=== PATIENT | female | born 1935 | race Caucasian/White ===

== ENCOUNTER → 2016-09-27 | Outpatient (CLI) | payer OTHER, MEDICARE ==
--- NOTE | 2016-09-27 14:03 | MA ---
Screening Digital Mammogram With iCAD Analysis Clinical Indications: Routine screening. The patient has had previous left breast biopsy. Technique: Standard cephalocaudal and mediolateral oblique projections are obtained. This examination is processed by the iCAD computer aided detection system. Comparison: September 2015, August 2014, July 2013, July 2012, June 2011, May 2010, October 2008. Breast density: Type B; Scattered fibroglandular densities. Findings: CAD was reviewed. No new spiculated masses, suspicious calcifications or other signs of mal ignancy are seen. There has been no significant change in the appearance of either breast. Vascular c alcifications are noted. Impression: Negative mammogram. BI-RADS 1. Recommendation: Routine mammographic screening in one year as long as physical examination is negativ [facility] will send a result letter to the patient. Negative mammography should not preclude additional workup of a clinically suspicious finding. The patient's information is entered into a reminder system with a target due date for her next mammo gram.
== END ==
LOC: FIMAGING 09:42
DX: Z12.31 Encounter for screening mammogram for malignant neoplasm of breast (principal)
CPT/HCPCS: G0202

== ENCOUNTER → 2016-11-15 | Outpatient (CLI) | payer OTHER, MEDICARE | LOC: FIMAGING 14:36 | PROVIDERS: ATTEND Family Medicine | DX: Z13.820 Encounter for screening for osteoporosis (principal); M81.0 Age-related osteoporosis without current pathological fracture ==

== ENCOUNTER → 2017-09-28 | Outpatient (CLI) | payer OTHER, MEDICARE | LOC: FIMAGING 12:04 | PROVIDERS: ATTEND Family Medicine | DX: Z12.31 Encounter for screening mammogram for malignant neoplasm of breast (principal) ==

== ENCOUNTER 2017-12-07 09:40 | Observation (INO) | payer OTHER, MEDICARE ==
[2017-12-07] MEDS ORDERED: NS 1,000 ML IV ONE ×2 (10:00→12:10)
[2017-12-07] MEDS ORDERED: ONDANSETRON 4 MG/2 ML VIAL IVP ONE (10:00)
--- NOTE | 2017-12-07 10:03 | EDPHY ---
H & P Stated Complaint: Pulse rate low and dizziness since thyroid surgery last week Source: Patient, Family Exam Limitations: No limitations - Personal History Current Tetanus Diphtheria and Acellular Pertussis (TDAP): Yes - Medical/Surgical History Other PMH: thyroid surgery November 2017. HTN. prediabetic. cholesterol - Social History Smoking Status: Former smoker Time Seen by Provider: 12/07/17 09:50 HPI/ROS: HPI: This is a 82-year-old female who presents with Chief Complaint: Pulse rate low and dizziness since thyroid surgery last week Location: Body Quality: Low pulse rate dizziness Duration: Since thyroid surgery last week Signs and Symptoms: no fever, + nausea, no vomiting, no hematemesis, no blood in stool, no abdominal bloating, no diarrhea, no back pain, no urinary symptoms , no testicular/groin pain, no indigestion, no chest pain, no shortness of breath, no dysphagia Timing: Daily Severity: Worsening Context: Patient is status post thyroid surgery which I presume is to be thyroidectomy in [place] by Dr. Abarca on November 28, 2017. Patient reports that since that time she has felt dizzy at rest and changing positions has noticed that her heart rate has been in the 40s while at home. She takes lisinopril daily. She reports that she does have some swelling in her throat area but that has gradually improved. She does have some bruising is in the area as well. She denies any difficulty swallowing/hoarseness/weakness/ radiation/muscle spasm/ptosis. Patient denies any calf swelling/shortness of breath/chest pain. Patient reports that she was diagnosed with a heart murmur as a child. Denies any syncopal episodes. Modifying Factors: None Comment: ROS: see HPI Constitutional: No fever, no chills, no weight loss Eyes: No blurred vision Respiratory: No shortness of breath, no cough Cardiovascular: No chest pain, no palpitations Gastrointestinal: + nausea, no vomiting, no diarrhea, no hematemesis, no blood in stool Genitourinary: No dysuria, no blood in urine Extremities: No myalgias, no edema Neurologic: No weakness, no numbness Skin: No rashes, no petechiae Hematologic: No bruising, no bleeding MEDICAL/SURGICAL/SOCIAL HISTORY: Medical history: HTN, prediabetic, cholesterol Surgical history: Thyroidectomy Social history: . Retired. CONSTITUTIONAL: Pleasant elderly white female, awake and alert, no obvious distress HEENT: Atraumatic and normocephalic, PERRL, EOMI. Tympanic membranes clear. Oropharynx clear, no exudate and moist pink mucosa. Airway patent. Neck: Supple; Steri-Strips noted over incision which is clean dry and intact; no wound dehiscence noted. Purple and yellowish ecchymosis present. No lymphadenopathy. No meningismus. Cardiovascular: Normal S1/S2, heart rate 44 to 48 beats per minute, regular rhythm, murmur noted 2/6. No rub or gallop. PULMONARY/CHEST: Symmetrical and nontender. Clear to auscultation bilaterally. Good air movement. No accessory muscle usage. ABDOMEN: Soft, nondistended, nontender, no rebound, no guarding, no peritoneal signs, no masses or organomegaly. No CVAT. EXTREMITIES: 2/2 pulses, strength 5/5, no deformities, no clubbing, no cyanosis or edema. NEUROLOGICAL: no focal neuro deficits. GCS 15. SKIN: Warm and dry, no erythema. no rash. Good capillary refill. (Leander,Patricia) Constitutional: Initial Vital Signs Temperature (C) 36.6 C 12/07/17 09:40 Heart Rate 48 L 12/07/17 09:40 Respiratory Rate 18 12/07/17 09:40 Blood Pressure 189/50 H 12/07/17 09:40 O2 Sat (%) 100 12/07/17 09:40 O2 Delivery Mode Room Air Allergies/Adverse Reactions: codeine [Codeine] Allergy (Mild, Verified 12/07/17 09:43) NAUSEA, "CRAZY IN THE HEAD" Penicillins Allergy (Mild, Verified 12/07/17 09:43) INJECTION SITE REACTION morphine Allergy (Unknown, Verified 12/07/17 09:43) made me have a second surgery Home Medications: Medication Instructions Recorded Acetaminophen [Tylenol 325mg (*)] 650 mg PO Q6 PRN 12/07/17 Ascorbic Acid [Vitamin C 500 mg 500 mg PO DAILY 12/07/17 (*)] Calcitriol [Calcitriol (*)] 0.5 mcg PO BID 12/07/17 Calcium Acetate [Phoslo (*)] 1,334 mg PO TIDMEAL 12/07/17 Calcium Carbonate [Tums 500MG (*)] 500 mg PO TID 12/07/17 Cholecalciferol Vit D3 [Vitamin D3 4,000 units PO DAILY 12/07/17 2000 units tab (OTC)] Herbals/Supplements -Info Only 1 ea PO DAILY 12/07/17 Ibuprofen [Motrin (*)] 400 mg PO Q4HRS PRN 12/07/17 Levothyroxine [Synthroid 100 mcg 100 mcg PO DAILY06 12/07/17 (*)] Lisinopril [Zestril 10 mg (*)] 10 mg PO DAILY 12/07/17 Magnesium Oxide [Magnesium Oxide 400 mg PO BID 12/07/17 400 mg (*)] Ondansetron HCl [Zofran] 4 mg PO TID PRN 12/07/17 Rosuvastatin Calcium [Crestor 40mg 40 mg PO DAILY 12/07/17 (*)] traMADol [Ultram 50 mg (*)] 50 mg PO Q6HRS PRN 12/07/17 Medical Decision Making ED Course/Re-evaluation: EKG, labs including ionized calcium, IV fluids, IV and oral medications ordered Heart rate in the 40s upon arrival; sinus. EKG shows RBBB and HR 45; dropped P wave noted; 2:1 1005: ED decision to consult for admission; Spoke with Dr. Masood Dowd, sales clerk food who agrees to consult on patient. Spoke with hospitalist regarding admission. Labs pending at time of consult except ionized calcium 1.32; BUN and creatinine elevated; received IV fluids. 1020: Notified by nursing that heart rate is in the 30s. Patient sitting up and talking. Patient placed on pads and cart at bedside. No syncope. This patient was seen under the supervision of my secondary supervising physician. I evaluated care for this patient independently. Discussed this patient with Dr. Aguillon who did not see the patient. (Patricia Lamar) Differential Diagnosis: Differential diagnosis includes but is not limited to hypoparathyroidism, hoarseness or change in voice, vocal cord paresis or paralysis due to nerve injury, Sawyer syndrome, chyle fistula, tracheal or esophageal injury, and dysphagia. (Patricia Lamar) Other Provider: PHYSICIAN DOCUMENTATION: The patient was evaluated and managed by the Physician Demurrage Man and myself. I have reviewed the chart and agree with the findings and plan of care as documented. In addition, I examined the patient myself at 1020. History confirmed as lightheaded, did not actually have syncope. Physical findings as follows: Regular rate and rhythm without murmur, normal mentation. EKG reviewed, consultation with Dr. Dowd who was on-call for [facility] today. Appears that patient has second-degree heart block. Pacer pads applied. Seen by Cardiology in the emergency department. Critical care time spent by me, Dr. Aguillon, exclusively with the care of this patient was 15 minutes, exclusive of PA or TRANSPORTATION ESCORT time and exclusive of separate procedures. The organ system at risk was cardiovascular and I ordered patient' s and cardiology consultation, review of diagnostic including EKG and rhythm strips, to stabilize the patient and prevent worsening of the patient's condition. I am the secondary supervising physician. (Myron Aguillon) - Data Points Laboratory Results: Laboratory Results 12/07/17 10:05 12/07/17 10:05 12/07/17 12/07/17 12/07/17 10:05 10:05 10:05 WBC 9.20 10^3/uL 10^3/uL (3.80-9.50) RBC 3.79 10^6/uL L 10^6/uL (4.18-5.33) Hgb 11.4 g/dL L g/dL (12.6-16.3) Hct 35.4 % L % (38.0-47.0) MCV 93.4 fL fL (81.5-99.8) MCH 30.1 pg pg (27.9-34.1) MCHC 32.2 g/dL L g/dL (32.4-36.7) RDW 13.0 % % (11.5-15.2) Plt Count 287 10^3/uL 10^3/uL (150-400) MPV 9.9 fL fL (8.7-11.7) Neut % (Auto) 52.6 % % (39.3-74.2) Lymph % (Auto) 28.2 % % (15.0-45.0) [place] % (Auto) 11.2 % % (4.5-13.0) Eos % (Auto) 5.4 % % (0.6-7.6) Baso % (Auto) 0.5 % % (0.3-1.7) Nucleat RBC Rel Count 0.0 % % (0.0-0.2) Absolute Neuts (auto) 4.84 10^3/uL 10^3/uL (1.70-6.50) Absolute Lymphs (auto) 2.59 10^3/uL 10^3/uL (1.00-3.00) Absolute Monos (auto) 1.03 10^3/uL H 10^3/uL (0.30-0.80) Absolute Eos (auto) 0.50 10^3/uL H 10^3/uL (0.03-0.40) Absolute Basos (auto) 0.05 10^3/uL 10^3/uL (0.02-0.10) Absolute Nucleated RBC 0.00 10^3/uL 10^3/uL (0-0.01) Immature Gran % 2.1 % H % (0.0-1.1) Immature Gran # 0.19 10^3/uL H 10^3/uL (0.00-0.10) Sodium 143 mEq/L mEq/L (135-145) Potassium 3.9 mEq/L mEq/L (3.5-5.2) Chloride 103 mEq/L mEq/L (97-110) Carbon Dioxide 27 mEq/l mEq/l (22-31) Anion Gap 13 mEq/L mEq/L (8-16) BUN 30 mg/dL H mg/dL (7-23) Creatinine 1.5 mg/dL H mg/dL (0.6-1.0) Estimated GFR 33 Glucose 126 mg/dL H mg/dL (70-100) Calcium 10.4 mg/dL mg/dL (8.5-10.4) Ionized Calcium 1.32 MMOL/L H MMOL/L (1.12-1.30) Total Bilirubin 1.3 mg/dL mg/dL (0.1-1.4) AST 29 IU/L IU/L (14-46) ALT 68 IU/L H IU/L (9-52) Alkaline Phosphatase 92 IU/L IU/L (38-126) Troponin I 0.032 ng/mL ng/mL (0.000-0.034) Total Protein 6.4 g/dL g/dL (6.3-8.2) Albumin 4.1 g/dL g/dL (3.5-5.0) TSH 2.400 uIU/mL uIU/mL (0.465-4.680) PTH Intact < 3.4 pg/ml L pg/ml (10.8-79.4) Calcium (PTH Intact) 10.4 mg/dL mg/dL (8.5-10.4) Creat (PTH Intact) 1.5 mg/dL H mg/dL (0.6-1.0) Phosph (PTH Intact) 4.1 mg/dL mg/dL (2.5-4.5) Medications Given: Hydralazine HCl (Apresoline) 10 mg IVP Q6HRS PRN PRN Reason: SBP Greater Than 160 Stop: 06/05/18 11:31 Last Admin: 12/07/17 12:04 Dose: 10 mg Discontinued Medications Al Hydroxide/Mg Hydroxide (Maalox Susp) 30 ml PO ONCE ONE Stop: 12/07/17 10:01 Last Admin: 12/07/17 11:17 Dose: Not Given Bacitracin (Bacitracin 1000 Ml Irrigation) 50,000 units IRR ONCALL ONE Stop: 12/07/17 12:11 Last Admin: 12/07/17 12:41 Dose: Not Given Diphenhydramine HCl (Benadryl) 25 mg PO ONCALL ONE Stop: 12/07/17 12:11 Last Admin: 12/07/17 12:41 Dose: Not Given Hyoscyamine Sulfate (Levsin, Hyomax-Sl) 0.25 mg PO ONCE ONE Stop: 12/07/17 10:01 Last Admin: 12/07/17 11:17 Dose: Not Given Sodium Chloride (Ns) 1,000 mls @ 0 mls/hr IV EDNOW ONE; Wide Open PRN Reason: Protocol Stop: 12/07/17 10:01 Last Admin: 12/07/17 10:45 Dose: 1,000 mls Sodium Chloride (Ns) 1,000 mls @ 0 mls/hr IV ONCALL ONE PRN Reason: TKO Stop: 12/07/17 12:11 Last Admin: 12/07/17 12:37 Dose: Not Given Vancomycin HCl 1 gm/ Sodium (Chloride) 250 mls @ 250 mls/hr IV ONCALL ONE Stop: 12/07/17 13:29 Last Admin: 12/07/17 12:33 Dose: 250 mls Lidocaine (Lidocaine 2% Viscous) 15 ml PO ONCE ONE Stop: 12/07/17 10:01 Last Admin: 12/07/17 11:17 Dose: Not Given Ondansetron HCl (Zofran) 4 mg IVP EDNOW ONE Stop: 12/07/17 10:01 Last Admin: 12/07/17 10:34 Dose: 4 mg Departure - Departure Disposition: To OP Cath/Surgery Clinical Impression: Status post thyroid surgery, Heart block AV second degree Condition: Fair
--- NOTE | 2017-12-07 10:03 | CPEKG ---
Heart Rate: 45 RR Interval: 1333 P-R Interval: 148 QRSD Interval: 130 QT Interval: 460 QTC Interval: 398 P [place]: 64 QRS [place]: -68 T Wave [place]: 100 EKG Severity - ABNORMAL ECG - EKG Impression: POSSIBLE ATRIAL ARRHYTHMIA, A-RATE 89 EKG Impression: RBBB AND LAFB EKG Impression: PROBABLE LVH WITH SECONDARY REPOL ABNRM EKG Impression: LATERAL INFARCT, AGE INDETERMINATE Electronically Signed By: Myron Aguillon 07-Dec-2017 10:12:10
[2017-12-07 10:18] LABS: PLATELET COUNT 287 10^3/uL (150-400)
[2017-12-07] MEDS: LIDOCAINE 2% VISCOUS 15 ML UDCUP PO ONE ×2 (10:29→11:17)
[2017-12-07] MEDS: MAG HYDROX/AL HYDROX/SIMETH 30 ML UDCUP PO ONE ×2 (10:29→11:17)
[2017-12-07] MEDS: HYOSCYAMINE SULFATE 0.125 MG TAB PO ONE ×2 (10:30→11:17)
--- NOTE | 2017-12-07 11:20 | PDPROPOC ---
Sedation Plan of Care Sedation Plan of Care: vital signs stable, mental status noted, patient educated of risks, benefits, alternatives, patient can tolerate sedation ASA Classification: ASA 3 Planned drugs: midazolam Mallampati Score: Class 3 Mallampati Reference Image: Patient passed 3-3-2 rule?: Yes
--- NOTE | 2017-12-07 11:21 | PDHPUP ---
History & Physical Update H&P update statement: This history and physical update is based on an assessment of the patient which was completed after admission or registration (within 24 hours), but prior to the surgery/procedure. H&P update: H&P reviewed & patient examined, no change in patient's condition since H&P completed
[2017-12-07] MEDS ORDERED: hydrALAZINE 20 MG/ML VIAL IVP PRN (11:32)
[2017-12-07] MEDS ORDERED: hydrALAZINE 20 MG/ML VIAL ONE (11:57)
[2017-12-07] MEDS ORDERED: LIDOCAINE 1% 300 MG/30 ML SDV ONE (11:59)
[2017-12-07] MEDS ORDERED: MIDAZOLAM 2 MG/2 ML VIAL ONE ×3 (12:00→13:55)
[2017-12-07] MEDS ORDERED: BACITRACIN IRRIGATION/NS 50,000 UNITS/1,000 ML BTL IRR ONE (12:10)
[2017-12-07] MEDS ORDERED: diphenhydrAMINE 25 MG CAP PO ONE (12:10)
[2017-12-07] MEDS ORDERED: VANCOMYCIN 1 GM in NS 250 ML IV ONE (12:30)
--- NOTE | 2017-12-07 12:36 | GHP ---
[f rep st] HISTORY AND PHYSICAL DATE OF ADMISSION: 12/07/2017 INDICATION FOR ADMISSION: Symptomatic bradycardia with 2:1 AV block. CONSULTING PHYSICIAN: Myron Aguillon MD. HISTORY OF PRESENT ILLNESS: The patient is a pleasant 82-year-old female with a known history of coronary artery disease based on Calcium Score, hypertension , hyperlipidemia, pulmonary hypertension and hypothyroidism who recently underwent a thyroidectomy and parathyroidectomy at [facility] in [place] 1 week ago today. Her postoperative course was complicated by vomiting and resulting in tear of internal stitches requiring repeat hospitalization. She was ultimately discharged home. She states that since the surgery, she has felt weak, tired, lethargic and dizzy. She denies any near-syncope or syncope. She states that she was seen by her surgeon for postoperative followup on Monday and was noted to have a heart rate of 40. In the setting of ongoing dizziness, she presented to [facility] for further evaluation. ECG demonstrated 2:1 AV block with a heart rate of 45 beats per minute with underlying right bundle branch block and left anterior fascicular block. Bifascicular block is known part of her medical history. She is also noted to be markedly hypertensive, most recent blood pressure of 230 systolic. REVIEW OF SYSTEMS: She denies any complaints of shortness of breath, dyspnea on exertion, PND, orthopnea or lower extremity edema. She denies complaints of exertional chest pain or pressure. She has had some atypical complaints of chest pain that have been present over the last 6 months. She denies complaints of palpitations. Remainder of 10-point review of systems is unremarkable. PAST MEDICAL HISTORY: 1. Coronary disease based on Calcium Score. 2. Hyperlipidemia. 3. Hypertension. 4. Pulmonary hypertension. 5. Status post thyroidectomy and parathyroidectomy November 30, [address] [facility]. MEDICATIONS ON ADMISSION: 1. Lisinopril 10 mg daily. 2. Crestor 40 mg daily. 3. Aspirin 81 mg daily. 4. Synthroid 100 mcg daily. 5. Calcitriol 0.5 mcg daily. 6. Magnesium oxide 400 mg p.o. b.i.d. ALLERGIES: To medication include codeine, morphine and penicillin. SOCIAL HISTORY: She is she lives with her . She drinks approximately 1 alcoholic beverage a day. She is a former smoker with a 25 pack year history of smoking, quit in 2008. FAMILY HISTORY: Noncontributory. DATA: ECG demonstrates 2:1 AV block with right bundle branch block and underlying left anterior fascicular block. Recent data nuclear stress test performed at [facility] July 2017 demonstrated normal perfusion and function. LABORATORY DATA: White blood cell count 9.2, hemoglobin 11.4, hematocrit 35.4, platelet count 287. Sodium 143, potassium 3.9, chloride 103, bicarb 27, BUN 30 , creatinine 1.5, calcium 10.4, ionized calcium 1.32. AST 29, ALT 68. Troponin 0.032. TSH 2.4. Phosphorus 4.1. PHYSICAL EXAMINATION: VITAL SIGNS: Blood pressure 230/76, heart rate of 44, respiratory rate of 16 oxygen saturation 95% on room air. GENERAL: She is awake, alert, oriented and appropriate. NECK: There is no evidence of JVP or carotid bruits. LUNGS: Clear to auscultation anteriorly bilaterally. CARDIAC : S1, S2. Regular rate and rhythm. There is a 2/6 systolic murmur audible at the right sternal border. She is bradycardic in the 40s. ABDOMEN: Soft, nontender, nondistended. There is no evidence of cyanosis, clubbing or edema. Distal pulses are intact. She does have an incision that is healing well, status post thyroidectomy and parathyroidectomy. IMPRESSION: 1. Symptomatic bradycardia. 2. 2:1 AV block. 3. Known history of right bundle branch block and left anterior fascicular block. 4. Hypertensive urgency. 5. History of coronary disease based on Calcium Score. Normal nuclear stress test July 2017. 6. Hyperlipidemia. 7. Status post thyroid and parathyroidectomy. The patient is a pleasant 82-year-old female with known history of right bundle branch block and left anterior fascicular block, who presents with symptomatic bradycardia with week long history of complaints of fatigue and dizziness. She reports a heart rate in the 40s at her followup appointment with her surgeon on this past Monday. Here at [facility], she remains in a steady 2:1 block with heart rate of approximately 45 beats per minute. She is on no AV sharri blocking medications or medications that would induce 2:1 block. In the setting of known conduction system disease and symptomatic bradycardia on no medicines that would induce her current condition, I have recommended the patient undergo dual-chamber pacemaker implantation today with my colleague, Dr. Terry Swift. We have discussed risks and benefits of the procedure. She is agreeable to pursue. The patient has also spoken directly with Dr. Swift who has explained the procedure in detail and again is agreeable to pursue. PLAN: 1. Will plan for patient to be taken to the EP lab for dual-chamber pacemaker this morning. 2. Initiate treatment for hypertensive urgency with hydralazine 10 mg IV x1. 3. Will reinitiate home medications and closely follow blood pressure. 45 minutes spent coordinating care. /[id number]/MODL BLAKE
[2017-12-07] MEDS ORDERED: fentaNYL 100 MCG/2 ML INJ ONE ×2 (13:06→14:03)
[2017-12-07] MEDS ORDERED: NON-FORMULARY NEW DRUG (Ondansetron Hcl [Zofran] 4 MG) PO PRN (14:29)
[2017-12-07] MEDS ORDERED: IBUPROFEN 200 MG TAB PO PRN (14:29)
--- NOTE | 2017-12-07 14:57 | CPEKG ---
Heart Rate: 75 RR Interval: 800 QRSD Interval: 124 QT Interval: 372 QTC Interval: 416 P [place]: 0 QRS [place]: -81 T Wave [place]: 196 EKG Severity - ABNORMAL ECG - EKG Impression: ATRIAL-SENSED VENTRICULAR-PACED COMPLEXES, PREMATURE ATRIAL COMPLEX EKG Impression: RBBB AND LAFB EKG Impression: PROBABLE LVH WITH SECONDARY REPOL ABNRM Electronically Signed By: Harsha Hart 13-Dec-2017 10:06:59
[2017-12-07] MEDS ORDERED: ONDANSETRON DISINTEGRATING 4 MG TAB PO PRN (15:44)
[2017-12-07] MEDS ORDERED: diphenhydrAMINE 25 MG CAP PO PRN (16:48)
[2017-12-07] MEDS: CALCIUM CARBONATE 500 MG CHEWABLE TAB PO SCH ×2 (17:05→21:20)
[2017-12-07] MEDS: traMADol 50 MG TAB PO PRN ×2 (17:05→21:19)
[2017-12-07] MEDS: CALCIUM ACETATE 667 MG CAP PO SCH (18:12)
[2017-12-07] MEDS ORDERED: VANCOMYCIN HCL/NORMAL SALINE 250 ML IV SCH (20:00)
[2017-12-07] MEDS: ACETAMINOPHEN 325 MG TAB PO PRN (21:16)
[2017-12-07] MEDS: CALCITRIOL 0.25 MCG CAP PO SCH (21:19)
[2017-12-07] MEDS: MAGNESIUM OXIDE 400 MG TAB PO SCH (21:20)
[2017-12-08 04:01] LABS: PLATELET COUNT 217 10^3/uL (150-400)
[2017-12-08] MEDS ORDERED: LEVOTHYROXINE 100 MCG TAB PO SCH (06:00)
[2017-12-08 07:56] VITALS: PULSE 71
--- NOTE | 2017-12-08 08:44 | CPEKG ---
Heart Rate: 84 RR Interval: 714 QRSD Interval: 106 QT Interval: 364 QTC Interval: 431 P [place]: 0 QRS [place]: -78 T Wave [place]: 94 EKG Severity - ABNORMAL ECG - EKG Impression: ATRIAL-SENSED VENTRICULAR-PACED COMPLEXES PAC'S EKG Impression: INCOMPLETE RBBB AND LAFB EKG Impression: LVH WITH SECONDARY REPOLARIZATION ABNORMALITY EKG Impression: PROLONGED QT INTERVAL Electronically Signed By: Harsha Hart 13-Dec-2017 10:06:17
[2017-12-08] MEDS ORDERED: ROSUVASTATIN CALCIUM 40 MG TAB PO SCH (09:00)
[2017-12-08] MEDS ORDERED: LISINOPRIL 20 MG TAB PO SCH (09:00)
[2017-12-08] MEDS ORDERED: Herbals/Supplements -Info Only PO SCH (09:00)
[2017-12-08] MEDS ORDERED: ASCORBIC ACID 500 MG TAB PO SCH (09:00)
[2017-12-08] MEDS ORDERED: LISINOPRIL 10 MG TAB PO SCH (09:00)
[2017-12-08] MEDS ORDERED: CHOLECALCIFEROL VIT D3 2,000 UNITS TAB/CAP PO SCH (09:00)
[2017-12-08] MEDS: CALCIUM CARBONATE 500 MG CHEWABLE TAB PO SCH (09:49)
[2017-12-08] MEDS: CALCITRIOL 0.25 MCG CAP PO SCH (09:49)
[2017-12-08] MEDS: MAGNESIUM OXIDE 400 MG TAB PO SCH (09:49)
[2017-12-08] MEDS: CALCIUM ACETATE 667 MG CAP PO SCH (09:49)
[2017-12-08] MEDS: ACETAMINOPHEN 325 MG TAB PO PRN (09:49)
[2017-12-08 11:41] VITALS: BP 180/70; RESP 14; TEMP 98; O2SAT 97
--- NOTE | 2017-12-08 12:05 | ECHO ---
[email or web address] [address] [address] Main: [phone] Fax: Transthoracic Echocardiogram Name: RODOLFO STEVENSON MR#: [id number] Study Date: 12/08/2017 Study Time: 10:58 AM Date of : 1935 Age: 82 year(s) Height: 160 cm (63 in.) Weight: 62.14 kg (137 lb.) BSA: 1.65 m2 Gender: Female Examination: Limited Echo Indication: Eval for pericardial effusion/new pacer Image Quality: Contrast: Requested by: Adan Kerr BP: 157 mmHg/68 mmHg Heart Rate: Rhythm: Indication: Eval for pericardial effusion/new pacer Procedure Staff Program Technician: Jinny Blanca [facility] [place] Reading Physician: Bradley Nunez MD Requesting Provider: Conclusions: No pericardial effusion. Pacemaker in the right heart. Apical dyskinesis consistent with pacing Measurements: Chambers Valvular Assessment AV/MV Valvular Assessment TV/PV Normal Normal Normal Name Value Range Name Value Range Name Value Range TR Vmax: 3.08 mm/s ( - ) TR PGmax: 38 mmHg ( - ) syst. PAP: 43 mmHg ( - ) Continued Measurements: Valvular Assessment TV/PV Name Value CVP (est.): 5 mmHg Findings: Left Ventricle: Mild concentric LV hypertrophy. Normal global systolic LV function. Right Ventricle: There is a pacemaker lead noted in the right ventricle. Mitral Valve: Mild mitral annular calcification. Mild mitral valve regurgitation is present. Tricuspid Valve: Mild tricuspid regurgitation is present. The pulmonary artery pressure is mildly increased. Pericardium: No pericardial effusion. Patient: RODOLFO STEVENSON Study Date: 12/08/2017 Page 1 of 2 10:58 AM (No Signature Object) Patient: RODOLFO STEVENSON Study Date: 12/08/2017 Page 2 of 2 10:58 AM [id number]
--- NOTE | 2017-12-08 12:41 | EPPROC ---
Electrophysiology Procedure Note: PROCEDURE PERFORMED: Implantation of an A/V Pacemaker Fluoroscopy INDICATION: Pt with symptomatic 2:1 Heart block with known chronic RBBB, LAHB. PROCEDURE NOTE: Patient presented to the cardiac catheterization laboratory in a fasting, post absorptive state. Cardiac recyclable materials sorter nurse administered moderate sedation. The left infraclavicular area was prepped and draped in the usual sterile fashion. Lidocaine plus bupivacaine was used for local anesthesia. Left subclavian venography was performed by injection of iodinated contrast into the left antecubital vein. This was done to assure patency of the vein and also to assess for any anatomical aberrations. Using a combination of blunt and sharp dissection and electrocautery, the dissection was carried down to the prepectoral fascia. All bleeding was controlled with electrocautery. Fluoroscopy was utilized during the entire procedure for venous access and placement of the leads. Using the usual technique, left cephalic vein was accessed and a glidewire was placed. Through this initially a 9F and later a 7F sheath was passed. Placement of the guidewires into the venous system was confirmed by low- pressure blood return and also by visualizing the guidewires advancing into the inferior vena cava. A purse string suture was applied around the guidewires. An active fixation ventricular lead was advanced into the right ventricular apex and screwed in place. An active fixation atrial lead was advanced into the right atrial appendage and screwed in place. The peel away sheaths were removed. Pacing thresholds, sensing parameters and lead impedances were measured. There was no diaphragmatic stimulation at maximum output. The leads were sutured to the prepectoral fascia with 3 nonabsorbable sutures each. The pocket was created and it was flushed using antibiotic solution. It was inspected for any bleeding. The leads were attached to the pacemaker securely. The pacemaker was inserted into the pocket and secured in place with a nonabsorbable suture. Fluoroscopy was performed in WADE and BRAZILIAN planes to verify right-sided placement of the leads. Also fluoroscopy of the pacemaker pocket was performed. The pacemaker pocket was closed in 3 layers with absorbable vicryl sutures. Steristrips were placed. Appropriate dressing was applied. The patient left the cardiac catheterization laboratory in stable condition. Serial Numbers: Device: ST Polo Assurity MRI 2272 SN [id number] Atrial Lead: St Polo 2088TC SN [id number] Ventricular Lead: St Polo 8TC SN [id number] Stimulation Thresholds & Impedance Measurements: Atrial Lead 1mV, 0.6@0.5ms, 500Ohms Ventricular Lead 7.2mV, 0.5@0.5ms, 552Ohms Dimitrios Pacing Parameters Pacing mode: DDDR Lower rate: 60 Upper tracking rate: 130 Upper sensor rate: 130 Patient Problems: Problems Problem Status Onset Heart block AV second degree Acute Status post thyroid surgery Acute
--- NOTE | 2017-12-08 13:14 | GDS ---
[f rep st] DISCHARGE SUMMARY DISCHARGE DIAGNOSES: 1. 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 2. Known coronary artery disease on the basis of a positive calcium score. 3. Hypertension. 4. Hyperlipidemia. 5. Pulmonary hypertension. 6. Recent thyroidectomy and parathyroidectomy at [facility] 1 week ago. 7. Pulmonary nodule. 8. Anemia. HOSPITAL COURSE: For detailed H and P, please see prior dictation. Briefly, Kristina Galloway is an 82-year-old female with a known history of coronary artery disease on the basis of a positive calcium score, hypertension, hyperlipidemia, and pulmonary hypertension, who recently underwent a thyroidect caitlin and parathyroidectomy at [facility] 1 week ago. Her postoperative course was complicate d by vomiting resulting in a tear of the internal stitches and requiring repeat hospitalization. Sin ce she was discharged home she has complained of near syncope and feeling weak, tired, and lethargic. She was noted to have a heart rate of 40 at her surgeon's office. She presented to [facility] with ongoing dizziness and was found to have 2-1 AV block with heart rate of 45 beats per minute. She also has an underlying right bundle branch block and left anterior fascicular block. G iven her symptoms and heart block, the decision was made to proceed with dual-chamber pacemaker place ment. This was done by Dr. Swift on December 07, 2017. She had a dual-chamber [employer] pacemaker placed . The following morning, her device was interrogated and working appropriately. Her chest x-ray tiffany wed good lead placement. She denied any significant discomfort over her pacer site. She did notice a significant improvement in her symptoms of fatigue. On the day of discharge, her H and H dropped from 11.4/35.4 to 9.5/29.3. She denies any bright red b lood in her stool or dark tarry stools. Her pacer site is clean and intact, without any evidence of hematoma or infection. Her incision site for her thyroidectomy, parathyroidectomy does not show any evidence of hematoma. An echocardiogram was done to rule out pericardial effusion. It was negative. Given that she is feeling well she will be discharged home, but if she develops symptoms consistent with anemia, she will contact our office promptly. Her chest x-ray on the day of discharge was negative for pneumothorax, but did show a new right upper lobe nodule. It was recommended she have a repeat chest x-ray in 4-6 weeks. She has had intermittent hypertension since admission. Lisinopril was increased to 20 mg twice daily . PHYSICAL EXAMINATION: GENERAL: Patient appears in no acute distress. VITALS: Blood pressure 180/7 0, heart rate 71, oxygen saturation 97% on room air, afebrile. LUNGS: Clear to auscultation. No wh eezes, rhonchi, or crackles auscultated. CARDIAC: Regular rate and rhythm without any significant m urmurs, rubs, or gallops appreciated. Chest wall pacer site is clean and intact, without any evidenc e of infection or hematoma. NECK: Incision site for her parathyroidectomy and thyroidectomy are berry an and intact, without any evidence of infection or hematoma. Repeat blood pressure was 160/90. DISCHARGE MEDICATIONS: Lisinopril has been switched to 20 mg daily. The remainder of her medication s will stay the same. She will continue Synthroid 100 mcg daily, Crestor 40 mg daily, calcitriol 0.5 mcg twice daily, Tylenol p.r.n., tramadol 50 mg p.r.n., herbal supplement daily, Zofran 4 mg three t imes daily p.r.n. for nausea, magnesium oxide 400 mg twice daily, ibuprofen p.r.n., vitamin D3 4000 u nits daily, calcium 500 mg three times daily, vitamin C 500 mg daily. PLAN: Kristina is currently stable and ready for discharge home. She has been given wound precautions . She is scheduled to follow up for wound check and pacer interrogation in 1 week. She is also sche duled to see Dr. Swift in 7-10 days. I would like her to keep a blood pressure log and bring that wit h her to her followup appointment. Her chest x-ray noted a right upper lobe nodule. She will repeat a chest x-ray in 4 weeks. Greater than 30 minutes was spent coordinating the patient's care today. /[id number]/MODL
--- NOTE | 2017-12-08 13:58 | ASDISCHSUM ---
Discharge Information Plan Status:Home with No Needs Medically Cleared to Leave:12/08/2017 Discharge Date:12/08/2017 01:39 PM CM D/C Disposition:Home, Routine, Self-Care ADT D/C Disposition:Home, Routine, Self-Care Projected Discharge Date:12/08/2017 01:39 PM Transportation at D/C: Discharge Delay Reason: Follow-Up Date:12/08/2017 01:39 PM Discharge Slot: Final Diagnosis: Placement Information Patient Contact Information Contact Name:TORI Relationship:Daughter Address:[address] Work Phone: City:[place] Alternate Phone: State/Zip Code:[place] [address] Email: Financial Information Financial Class:Medicare Primary Plan Desc:MEDICARE OUTPATIENT Primary Plan Number:[id number] Secondary Plan Desc:[employer]ARP/KATINA SUPPLEMENT Secondary Plan Number:[id number] Assessment Information LACE LACE Length of stay for Answers: 1 day current admission Acuity / Level of Answers: Yes Care: Did the patient have an inpatient admission? Comorbidities - select Answers: Diabetes (uncontrolled or all that apply controlled) # of Emergency department Answers: 1-2 visits in the last 6 months Score: 6 Date Signed: 12/08/2017 01:57 PM Electronically Signed By:Saima Rapp RN Intervention Information Intervention Type:*KWAKU-Signed Date of Service:12/08/2017 10:54 AM Patient Type:Observation Staff Member:Savanah Patel Hours: Discipline: Severity: Comment:
== END 2017-12-08 13:39 | disposition home or self-care (01) ==
LOC: INTOOBSV 10:22 → F2W 12:07
PROVIDERS: ADMIT Internal Medicine Pulmonary Disease; ATTEND Internal Medicine Cardiovascular Disease
PROC: 02HK3JZ Insertion of Pacemaker Lead into Right Ventricle, Percutaneous Approach (ICD-10-PCS; principal; 2017-12-07)
PROC: 0JH606Z Insertion of Pacemaker, Dual Chamber into Chest Subcutaneous Tissue and Fascia, Open Approach (ICD-10-PCS; principal; 2017-12-07)
PROC: 02H63JZ Insertion of Pacemaker Lead into Right Atrium, Percutaneous Approach (ICD-10-PCS; principal; 2017-12-07)
DX: I44.1 Atrioventricular block, second degree (principal); I25.10 Atherosclerotic heart disease of native coronary artery without angina pectoris; I10 Essential (primary) hypertension; E78.5 Hyperlipidemia, unspecified; I27.20 Pulmonary hypertension, unspecified; R91.1 Solitary pulmonary nodule; D64.9 Anemia, unspecified; E89.2 Postprocedural hypoparathyroidism; E89.0 Postprocedural hypothyroidism; Z98.890 Other specified postprocedural states
CPT/HCPCS: 33208; 71046; 93005; 93308; 96374; 96375; 99285; C1769; C1785; C1898; G0378; J0360; J2250; J2405; J3010; J3370

== ENCOUNTER 2017-12-10 15:29 | Emergency (ER) | payer OTHER, MEDICARE ==
[2017-12-10 15:36] VITALS: TEMP 97.7
[2017-12-10] MEDS ORDERED: LORazepam 2 MG/ML INJ IVP ONE (16:02)
--- NOTE | 2017-12-10 16:05 | CPEKG ---
Heart Rate: 97 RR Interval: 619 P-R Interval: 152 QRSD Interval: 140 QT Interval: 380 QTC Interval: 483 P Rogers: 87 QRS Rogers: -93 T Wave Rogers: 85 EKG Severity - ABNORMAL ECG - EKG Impression: ATRIAL-SENSED VENTRICULAR-PACED COMPLEXES EKG Impression: RIGHT BUNDLE BRANCH BLOCK EKG Impression: LEFT VENTRICULAR HYPERTROPHY Electronically Signed By: Neptali Armstrong 10-Dec-2017 22:43:00
--- NOTE | 2017-12-10 16:08 | EDPHY ---
H & P Time Seen by Provider: 12/10/17 15:45 HPI/ROS: HPI High blood pressure. 82-year-old female by private vehicle with her and daughter. This patient has a history of parathyroidectomy and thyroidectomy on November 30. This was performed down at [facility] in the [place] area. She reports that there was a complication from the surgery and had to be put back under general anesthesia to address this. She could not give me any specifics as to the nature of the complication. She reports that since she had this surgery her heart rate has been very low. She then saw Dr. Paige and Dr. Masood Dowd of the Cardiology Service and had a pacemaker placed. She reports that her blood pressure has slowly been going up over the last 2 weeks. She was placed on lisinopril initially at 10 mg daily by her nurse practitioner Dr. Jenna Hooks. This was then increased to 20 mg daily. She reports that today her blood pressure was consistently in the low [address] Jenna Cruz and spoke to her about this. Dr. Jenna Cruz recommended she double her lisinopril. She took 40 mg total of lisinopril prior to coming to the emergency department and is seen little effect in her blood pressure. Nursing staff reports that she seemed up tight and anxious in triage. She denies any associated signs or symptoms. ROS: Constitutional: No fever, no chills. No weakness. Eyes: No discharge. No changes in vision. ENT: No sore throat. No nasal congestion or rhinorrhea. Respiratory: No cough. No shortness of breath. Cardiac: No chest pain, no palpitations. Gastrointestinal: No abdominal pain, no vomiting, no diarrhea. Genitourinary: No hematuria. No dysuria or increased frequency with urination. Musculoskeletal: No back pain. No neck pain. No myalgias or arthralgias. Skin: No rashes. Neurological: No headache. No focal weakness or altered sensation. Past medical history: As above, also includes hyperlipidemia. She is also prediabetic. Social history: Nonsmoker. Here with her and daughter. No alcohol. Physical Exam: General Appearance: Alert, mildly anxious, no apparent distress. This patient is responding to questions appropriately and in full sentences. This patient appears well-hydrated and well-nourished. Eyes: Pupils equal and round no pallor or injection. No lid edema, erythema or injection. Respiratory: There are no retractions, lungs are clear to auscultation with good air movement bilaterally. Cardiovascular: Regular rate and rhythm. Borderline tachycardia. No murmur appreciated. Gastrointestinal: Abdomen is soft and nontender, no masses, bowel sounds normal. No focal tenderness at McBurney's point. No Galeas sign. Neurological: Motor sensory function is grossly intact. Cranial nerves are normal. Gait is normal. Skin: Warm and dry, no rashes. Surgical scars from pacemaker placement as well as thyroidectomy and parathyroidectomy are healing well and without evidence of infection. Musculoskeletal: Neck is supple and nontender. Extremities are symmetrical. All joints range without pain or impingement. Psychiatric: No agitation. No depression. Database: EKG: EKG time is 4:04 p.m.: EKG shows atrial sensed and ventricular paced complexes probable left ventricular hypertrophy noted. Appropriate discordance noted. Interpreted by me. Imaging: Chest x-ray AP portable; the cardiac mediastinal silhouette is unremarkable. No evidence of infiltrate or pneumothorax. No acute cardiopulmonary disease process noted. Interpreted by me. Procedures: Emergency department course: Vital signs reviewed. Initial blood pressure 217/102. Repeat blood pressure on my evaluation 141/120. IV placed. EKG obtained and reviewed by myself. Patient will be given 0.5 mg of IV Ativan initially for anxiolysis see if this improves her blood pressure. 5:05 p.m., patient re-evaluated. More relaxed at this time. Blood pressure currently is 205/87. Denies any chest pain or shortness of breath. No other complaints at this time. 5:40 p.m., patient's blood pressure currently 103/98. The patient is still very concerned about her hypertension. She was given 5 mg of IV hydralazine. She denies any chest pain, shortness of breath or other complaints at this time. Blood work reviewed. CBC demonstrates that her anemia is at its baseline. Her creatinine is lower than baseline. 6:15 p.m., blood pressure is 165 over 76. The patient states that she does not feel any chest pain or shortness of breath at this time. She has no complaints. I discussed the results of her EKG, chest x-ray and blood work with her and family. She feels comfortable going home. She will follow up with Dr. Jenna Cruz regarding her hypertension management tomorrow. Return to emergency department precautions were thoroughly reviewed with her and family. All of their questions were answered. The patient was discharged in good condition Differential Diagnosis: The differential diagnosis on this patient includes but is not limited to uncontrolled hypertension. Hypertensive emergency unlikely. This represents a partial list of diagnoses considered. These considerations are based on history , physical exam, past history, reassessment and diagnostic testing. Smoking Status: Former smoker Constitutional: Initial Vital Signs Temperature (C) 36.5 C 12/10/17 15:32 Heart Rate 85 12/10/17 15:32 Respiratory Rate 18 12/10/17 15:32 Blood Pressure 217/102 H 12/10/17 15:32 O2 Sat (%) 99 12/10/17 15:32 O2 Delivery Mode Room Air Allergies/Adverse Reactions: codeine [Codeine] Allergy (Mild, Verified 12/07/17 09:43) NAUSEA, "CRAZY IN THE HEAD" Penicillins Allergy (Mild, Verified 12/07/17 09:43) INJECTION SITE REACTION morphine Allergy (Unknown, Verified 12/07/17 09:43) made me have a second surgery Home Medications: Medication Instructions Recorded Acetaminophen [Tylenol 325mg (*)] 650 mg PO Q6 PRN 12/07/17 Ascorbic Acid [Vitamin C 500 mg 500 mg PO DAILY 12/07/17 (*)] Calcitriol [Calcitriol (*)] 0.5 mcg PO BID 12/07/17 Calcium Acetate [Phoslo (*)] 1,334 mg PO TIDMEAL 12/07/17 Calcium Carbonate [Tums 500MG (*)] 500 mg PO TID 12/07/17 Cholecalciferol Vit D3 [Vitamin D3 4,000 units PO DAILY 12/07/17 2000 units tab (OTC)] Herbals/Supplements -Info Only 1 ea PO DAILY 12/07/17 Ibuprofen [Motrin (*)] 400 mg PO Q4HRS PRN 12/07/17 Levothyroxine [Synthroid 100 mcg 100 mcg PO DAILY06 12/07/17 (*)] Magnesium Oxide [Magnesium Oxide 400 mg PO BID 12/07/17 400 mg (*)] Ondansetron HCl [Zofran] 4 mg PO TID PRN 12/07/17 Rosuvastatin Calcium [Crestor 40mg 40 mg PO DAILY 12/07/17 (*)] traMADol [Ultram 50 mg (*)] 50 mg PO Q6HRS PRN 12/07/17 Lisinopril [Zestril 20 mg (*)] 20 mg PO DAILY #30 tab 12/08/17 Medical Decision Making - Diagnostics Imaging Results: Imaging Impressions Chest X-Ray 12/10/17 16:02 Impression: 1. Borderline-cardiomegaly with pulmonary venous hypertension, and no focal infiltrate. 2. The recently-suspected nodule projected over the right upper lobe near a former telemetry monitoring lead line is not appreciated currently. - Data Points Laboratory Results: Laboratory Results 12/10/17 16:55 12/10/17 16:20 12/10/17 12/10/17 12/10/17 16:55 16:20 16:20 WBC 6.75 10^3/uL 10^3/uL TNP (3.80-9.50) RBC 3.55 10^6/uL L 10^6/uL TNP (4.18-5.33) Hgb 10.6 g/dL L g/dL TNP (12.6-16.3) Hct 31.7 % L % TNP (38.0-47.0) MCV 89.3 fL fL TNP (81.5-99.8) MCH 29.9 pg pg TNP (27.9-34.1) MCHC 33.4 g/dL g/dL TNP (32.4-36.7) RDW 12.5 % % TNP (11.5-15.2) Plt Count TNP TNP MPV TNP Neut % (Auto) Not Reported Lymph % (Auto) Not Reported [place] % (Auto) Not Reported Eos % (Auto) Not Reported Baso % (Auto) Not Reported Nucleat RBC Rel Count Not Reported Absolute Neuts (auto) Not Reported Absolute Lymphs (auto) Not Reported Absolute Monos (auto) Not Reported Absolute Eos (auto) Not Reported Absolute Basos (auto) Not Reported Absolute Nucleated RBC Not Reported Immature Gran % Not Reported Immature Gran # Not Reported Sodium 145 mEq/L mEq/L (135-145) Potassium 3.6 mEq/L mEq/L (3.5-5.2) Chloride 107 mEq/L mEq/L (97-110) Carbon Dioxide 23 mEq/l mEq/l (22-31) Anion Gap 15 mEq/L mEq/L (8-16) BUN 24 mg/dL H mg/dL (7-23) Creatinine 1.3 mg/dL H mg/dL (0.6-1.0) Estimated GFR 39 Glucose 99 mg/dL mg/dL (70-100) Calcium 11.0 mg/dL H D mg/dL (8.5-10.4) Phosphorus 4.4 mg/dL mg/dL (2.5-4.5) TSH 1.150 uIU/mL uIU/mL (0.465-4.680) Free T4 2.38 ng/dL H ng/dL (0.59-2.19) Free T3 3.31 pg/mL pg/mL (2.77-5.27) Medications Given: Discontinued Medications Hydralazine HCl (Apresoline) 5 mg IVP EDNOW ONE Stop: 12/10/17 17:39 Last Admin: 12/10/17 17:41 Dose: 5 mg Lorazepam (Ativan Injection) 0.5 mg IVP EDNOW ONE Stop: 12/10/17 16:03 Last Admin: 12/10/17 16:23 Dose: 0.5 mg Departure - Departure Disposition: Home, Routine, Self-Care Clinical Impression: Uncontrolled hypertension Condition: Good Instructions: Hypertension (ED) Additional Instructions: Read and follow provided instructions. Follow-up with your primary care physician or nurse practitioner, Dr. Jenna Cruz in the next 1-2 days for re-evaluation and further management of your elevated blood pressure. Take your blood pressure medication as prescribed only. Return to the emergency department for chest pain, shortness of breath, worsening headache or other serious concerns. Referrals: Francheska Araiza MD [Primary Care Provider] - As per Instructions Jenna Cruz MD [Medical Doctor] - As per Instructions
[2017-12-10 17:35] VITALS: RESP 18; O2SAT 97
[2017-12-10] MEDS ORDERED: hydrALAZINE 20 MG/ML VIAL IVP ONE (17:38)
[2017-12-10 18:06] VITALS: BP 165/76; PULSE 82
== END 2017-12-10 18:23 | disposition home or self-care (01) ==
DX: I10 Essential (primary) hypertension (principal); Z87.891 Personal history of nicotine dependence
CPT/HCPCS: 71045; 93005; 96374; 96375; 99285; J0360; J2060; 84481-90

== ENCOUNTER 2017-12-12 09:20 | Inpatient (IN) | payer OTHER, MEDICARE ==
[~2017-12-12 09:20] MED LIST: METOPROLOL SUCCINATE XR 50 MG TAB PO SCH
--- NOTE | 2017-12-12 10:12 | CPEKG ---
Heart Rate: 81 RR Interval: 741 P-R Interval: 188 QRSD Interval: 146 QT Interval: 404 QTC Interval: 469 P [place]: 60 QRS [place]: 269 T Wave [place]: 90 EKG Severity - ABNORMAL ECG - EKG Impression: ATRIAL-SENSED VENTRICULAR-PACED RHYTHM Electronically Signed By: Harsha Hart 13-Dec-2017 10:05:03
[2017-12-12 10:31] LABS: PLATELET COUNT 286 10^3/uL (150-400)
[2017-12-12] MEDS ORDERED: NS 1,000 ML IV ONE (10:35)
--- NOTE | 2017-12-12 10:42 | EDPHY ---
H & P Time Seen by Provider: 12/12/17 10:16 HPI/ROS: Chief complaint. Elevated calcium, atrial fibrillation HPI. Patient is [age] year old female with complaint of being lightheaded and feeling spacey. She had blood drawn 2 days ago and was contacted because of the elevated calcium and sent to the emergency department. She also had a pacemaker placed about 5 days ago because of bradycardia and 2-1 av block. Apparently the company that monitors patient's rhythm noted that she had about a 2 and 0.5 hr episode of atrial fibrillation last night. Patient tells me that she had a little bit chest pain last night as well. Her chest discomfort was fairly typical and not unusual. There was no associated shortness of breath. The patient had a thyroidectomy and parathyroidectomy at [facility] 10 days ago. Her operating surgeon was . Currently she does not have chest discomfort. She has no abdominal pain. ROS Constitutional. no fever/chills, no weakness Eyes. no problems with vision ENT. no sore throat, no nasal drainage Cardiovascular. Chest pain Respiratory. no shortness of breath, no cough Abdominal. no abdominal pain, no nausea/vomiting, no diarrhea . no problems urinating MS. no calf pain/swelling, no neck/back pain, no joint pain Skin. no rash Lymph. no swollen glands Neuro. 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 ENT, Mouth: Mucous membranes are moist. Respiratory: There are no retractions, lungs are clear to auscultation. Cardiovascular: Regular rate and rhythm. Gastrointestinal: Abdomen is soft and nontender, no masses, bowel sounds normal. Neurological: Awake and alert, sensory and motor exams grossly normal. Skin: Warm and dry, no rashes. Musculoskeletal: Neck is supple nontender. Extremities symmetrical, full range of motion. Psychiatric: Patient is oriented X 3, there is no agitation. Constitutional: Initial Vital Signs Temperature (C) 36.8 C 12/12/17 09:29 Heart Rate 89 12/12/17 09:29 Respiratory Rate 16 12/12/17 09:29 Blood Pressure 175/94 H 12/12/17 09:29 O2 Sat (%) 99 12/12/17 09:29 O2 Delivery Mode Room Air Allergies/Adverse Reactions: codeine [Codeine] Allergy (Mild, Verified 12/12/17 09:27) NAUSEA, "CRAZY IN THE HEAD" Penicillins Allergy (Mild, Verified 12/12/17 09:27) INJECTION SITE REACTION morphine Allergy (Unknown, Verified 12/12/17 09:27) made me have a second surgery Home Medications: Medication Instructions Recorded Acetaminophen [Tylenol 325mg (*)] 650 mg PO Q6 PRN 12/07/17 Cholecalciferol Vit D3 [Vitamin D3 4,000 units PO DAILY 12/07/17 2000 units tab (OTC)] Levothyroxine [Synthroid 100 mcg 100 mcg PO DAILY06 12/07/17 (*)] Rosuvastatin Calcium [Crestor 40mg 40 mg PO HS 12/07/17 (*)] Lisinopril [Zestril 20 mg (*)] 20 mg PO HS 12/12/17 Medical Decision Making - Diagnostics EKG Interpretation: EKG shows normal sinus rhythm that is paced. Please see full interpretation and trace master Imaging Results: One-view chest x-ray unremarkable Procedures: IV normal saline and patient is given a L of saline. She is placed on monitor worker ED Course/Re-evaluation: I consulted and discussed the case with Dr. Cruz for Cardiology and she was the 1 who told me how 0 the atrial fibrillation was diagnosed last night. I have consulted and I discussed the case with at [facility] who recommends IV hydration for the elevated calcium. Patient's troponin is also elevated at 0.5. The patient, her daughter, and I discussed treatment plan including recommendation for admission. She expresses understanding and agreement I consulted and discussed case Dr. Rosy Crump, hospitalist, who agrees to the admission I consulted and discussed the case again with Dr. Cruz for cardiology who will see the patient in consult Differential Diagnosis: Hypercalcemia with recent thyroidectomy and parathyroidectomy. Treatment initially with IV hydration and possibly then medication. Recent pacemaker insertion and episode of atrial fibrillation with chest pain last night. Elevated troponin today. I have considered acute coronary syndrome. - Data Points Laboratory Results: Laboratory Results 12/12/17 10:10 12/12/17 10:10 Medications Given: Amlodipine Besylate (Norvasc) 10 mg PO DAILY DAVID Stop: 06/11/18 08:59 Last Admin: 12/13/17 09:43 Dose: 10 mg Aspirin (Aspirin) 81 mg PO DAILY DAVID Stop: 06/11/18 08:59 Last Admin: 12/13/17 09:43 Dose: 81 mg Cholecalciferol (Vitamin D) 4,000 units PO DAILY DAVID Stop: 06/11/18 08:59 Last Admin: 12/13/17 09:43 Dose: 4,000 units Diphenhydramine HCl (Benadryl) 25 mg PO HS PRN PRN Reason: Sleep/Insomnia Stop: 06/10/18 18:46 Last Admin: 12/12/17 20:31 Dose: 25 mg Famotidine (Pepcid) 20 mg PO DAILY [facility] Stop: 06/10/18 18:44 Last Admin: 12/13/17 09:42 Dose: 20 mg Isosorbide Mononitrate (Imdur) 30 mg PO DAILY DAVID Stop: 06/11/18 08:59 Last Admin: 12/13/17 09:42 Dose: 30 mg Labetalol HCl (Trandate Injection) 10 mg IVP Q6H PRN PRN Reason: sbp >180 Stop: 06/10/18 17:14 Last Admin: 12/13/17 06:13 Dose: 10 mg Levothyroxine Sodium (Synthroid) 100 mcg PO DAILY06 [facility] Stop: 06/11/18 05:59 Last Admin: 12/13/17 06:12 Dose: 100 mcg Metoprolol Succinate (Toprol Xl) 50 mg PO DAILY DAVID Stop: 06/11/18 08:59 Last Admin: 12/13/17 09:42 Dose: 50 mg Nitroglycerin (Nitrostat) 0.4 mg SL Q5M PRN PRN Reason: Chest Pain Stop: 06/11/18 01:27 Last Admin: 12/13/17 03:30 Dose: 0.4 mg Ondansetron HCl (Zofran Odt) 4 mg PO Q4HRS PRN PRN Reason: Nausea/Vomiting, Use 1st Stop: 09/23/18 12:21 Last Admin: 12/13/17 14:59 Dose: 4 mg Rosuvastatin Calcium (Crestor) 40 mg PO HS DAVID Stop: 06/10/18 20:59 Last Admin: 12/12/17 20:31 Dose: 40 mg Discontinued Medications Amlodipine Besylate (Norvasc) 5 mg PO DAILY DAVID Stop: 06/10/18 12:29 Last Admin: 12/12/17 13:02 Dose: 5 mg Apixaban (Eliquis) 2.5 mg PO BID DAVID Stop: 06/10/18 20:59 Last Admin: 12/12/17 20:32 Dose: 2.5 mg Aspirin (Aspirin) 325 mg PO ONCE ONE Stop: 12/12/17 12:23 Last Admin: 12/12/17 13:02 Dose: 325 mg Heparin Sodium (Porcine) (Heparin Sc Injection) 5,000 unit SC Q8 DAVID Stop: 06/10/18 13:59 Last Admin: 12/12/17 14:47 Dose: 5,000 unit Sodium Chloride (Ns) 1,000 mls @ 0 mls/hr IV EDNOW ONE; Wide Open PRN Reason: Protocol Stop: 12/12/17 10:36 Last Admin: 12/12/17 10:46 Dose: 1,000 mls Sodium Chloride (Ns) 1,000 mls @ 200 mls/hr IV CONT DAVID Stop: 06/10/18 12:29 Last Admin: 12/13/17 04:10 Dose: 1,000 mls Potassium Chloride 20 meq/ (Sodium Chloride) 1,000 mls @ 100 mls/hr IV CONT DAVID Stop: 06/11/18 07:29 Last Admin: 12/13/17 10:57 Dose: 1,000 mls Lisinopril (Zestril) 20 mg PO HS DAVID Stop: 06/10/18 20:59 Last Admin: 12/12/17 20:31 Dose: 20 mg Metoprolol Succinate (Toprol Xl) 25 mg PO DAILY DAVID Stop: 06/10/18 08:59 Last Admin: 12/12/17 22:06 Dose: Not Given Potassium Chloride (Klor-Con) 10 - 40 meq PO ONCE ONE PRN Reason: Protocol Stop: 12/12/17 17:31 Last Admin: 12/12/17 18:32 Dose: 30 meq Potassium Chloride (Klor-Con) 10 meq PO ONCE ONE PRN Reason: Protocol Stop: 12/13/17 08:40 Last Admin: 12/13/17 09:43 Dose: 10 meq Departure - Departure Disposition: [facility] Inpatient Acute Clinical Impression: Hypercalcemia, Elevated troponin Chest pain Qualifiers: Chest pain type: unspecified Qualified Code(s): R07.9 - Chest pain, unspecified Condition: Fair
[2017-12-12] MEDS ORDERED: ACETAMINOPHEN 325 MG TAB PO PRN (12:22)
[2017-12-12] MEDS ORDERED: ASPIRIN 325 MG TAB PO ONE (12:22)
[2017-12-12] MEDS ORDERED: amLODIPine BESYLATE 5 MG TAB PO SCH (12:30)
[2017-12-12] MEDS: NS 1,000 ML IV SCH ×2 (13:09→23:04)
[2017-12-12] MEDS ORDERED: HEPARIN 5,000 UNIT/0.5 ML INJ SC SCH (14:00)
--- NOTE | 2017-12-12 14:13 | GHP ---
[f rep st] HISTORY AND PHYSICAL DATE OF ADMISSION: 12/12/2017 CHIEF COMPLAINT: Elevated calcium with nausea, dizziness and weakness. HISTORY OF PRESENT ILLNESS: Ms. Galloway is an 82-year-old female with a history of hypertension, hyperlipidemia, and primary hyperparathyroidism who recently underwent parathyroidectomy and thyroidectomy at [facility] on 11/30, and subsequently was admitted to [facility] with 2:1 AV block and symptomatic bradycardia requiring pacemaker placement, who returns today at the direction of her warehouse consultant's office due to hypercalcemia seen on routine laboratory followup. She apparently had a very low calcium after her parathyroidectomy and was placed on aggressive replacement along with calcitriol. She has been taking nearly the 10,000 mg of calcium daily since discharge. She then presented to the emergency department on 12/07 with weakness and dizziness, and was found to have a heart rate of 40. A dual chamber pacemaker was placed. Since that time, she denies any chest pain or shortness of breath. She does endorse nausea but denies vomiting or diarrhea. She describes a fuzzy feeling in her head and weakness in her legs. Workup in the emergency department revealed a serum calcium of 12.7, a troponin of 0.489 and her creatinine is elevated to 1.9. She is admitted to the hospital for further management. PAST MEDICAL AND SURGICAL HISTORY: 1. History of primary hyperparathyroidism status post parathyroidectomy and thyroidectomy November 30, 2017 at [facility] by Dr. Abarca. 2. 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 3. History of right bundle branch block and left anterior fascicular block. 4. Hypertension. 5. Hyperlipidemia. 6. Pulmonary hypertension. 7. Suspected coronary artery disease based on calcium score with a negative nuclear stress test in 07/2017. 8. Reported atrial fibrillation noted on her pacemaker since insertion. MEDICATIONS: Please see Zoomph for completed outpatient medication list. ALLERGIES: Codeine, morphine, and penicillin. FAMILY HISTORY: Reviewed and noncontributory. SOCIAL HISTORY: The patient is . Her is present at the bedside. She usually drinks 1 alcoholic beverage a day. She is a nonsmoker, though has a history of tobacco use with a 25 pack year history, having quit in 2008. REVIEW OF SYSTEMS: A 10-point review of systems is reviewed and is negative except as per HPI. PHYSICAL EXAMINATION: VITAL SIGNS: Temperature is 36.8, current blood pressure of 202/89, heart rate 86, respiratory rate 18, she is 97% on room air. GENERAL: The patient is awake, alert, and oriented, in no acute distress. HEENT : Head is atraumatic, normocephalic. Pupils are equal, round, and reactive to light. Extraocular muscles intact. Oropharynx is clear. Mucous membranes are moist. NECK: Supple. There is no JVD. HEART: Heart has a regular rate and rhythm with 2/6 systolic ejection murmur. LUNGS: Clear to auscultation bilaterally. ABDOMEN: Soft, nondistended, nontender. Normoactive bowel tones. EXTREMITIES: Without cyanosis, clubbing, or edema. NEUROLOGIC: Exam is grossly nonfocal. LABORATORY DATA: CBC is remarkable for a hemoglobin of 10.7, which is stable. Basic metabolic panel is remarkable for BUN of 30, creatinine of 1.9. Serum calcium 12.7, phosphorus 4.8. Troponin is 0.489. Vitamin D level is 28, PTH is less than 3.4, albumin is 3.7. EKG shows an atrial sensed ventricular paced rhythm. Chest x-ray performed 2 days prior to admission is reviewed, shows borderline cardiomegaly with no focal infiltrate. The previously suspected right upper lobe nodule was no longer seen on the repeat film. ASSESSMENT AND PLAN: Ms. Galloway is an 82-year-old female with history of hypertension, hyperlipidemia, and primary hyperparathyroidism who is status post parathyroidectomy, thyroidectomy, and recent pacemaker placement who presents to the emergency department with hypercalcemia, acute kidney injury and elevated troponin. 1. Hypercalcemia. This is acute as she had a serum calcium of 9 just 4 days prior to presentation. I suspect this may be related to her acute renal insufficiency on top of very high dose calcium supplementation. We will obviously hold all calcium supplements as well as hold her calcitriol. I will aggressively hydrate her with normal saline at 200 cc an hour and repeat labs this afternoon. If her calcium persists elevated, will initiate calcitonin therapy. Her PTH is appropriately suppressed. I discussed the case with Radha, the warehouse consultant [employer] in [place]. Her cell phone number is [phone]. 2. Acute kidney injury. Her creatinine was 1.0 in 07/2017 and is now 1.9 with an azotemia. I suspect a prerenal etiology. Will send a urine creatinine and urine sodium to calculate a FeNa for further evaluation. As above, aggressive IV fluids are planned. We will recheck labs this afternoon. Renal u/s and UA ordered. 3. Elevated troponin. I query if this could be secondary to her recent pacemaker placement and associated irritation of myocardium. She is chest pain free. She had a negative nuclear medicine stress test in 07/2017. I reviewed her echo from 12/08. She had normal LV function at that time with no wall motion abnormality. Cardiology has been consulted. Will trend her troponin and further recommendations per the cardiology team. Will give a full-dose aspirin now. 4. Atrial fibrillation. She apparently had a 2 hour bout of this last night. She denied symptoms but this was noted on her pacemaker. She is currently in atrial paced rhythm with a rate in the 80s. Cardiology will consult. We may need to consider anticoagulation. Will await further Cardiology recommendations. She may be appropriate for initiation of beta-jose therapy now that she has a pacemaker. Defer to cardiology. 5. Hypertensive urgency. Her blood pressure on arrival to the floor is 202/89. She takes lisinopril as an outpatient. I will give her a dose of amlodipine now and discuss possible initiation of beta jose for further blood pressure control with Cardiology service. We can also up-titrate her lisinopril. 6. Hypothyroidism. She is status post thyroidectomy. Her TSH 2 days ago was 1.15. We will continue her current dose of levothyroxine. 7. Hyperlipidemia. Continue statin. 8. Code status. Patient is a full code. 9. Deep venous thrombosis prophylaxis. Will start subcu heparin and she may wind up on therapeutic anticoagulation. 10. Disposition. Patient is admitted to inpatient status as I anticipate greater than 48 hours hospitalization for ongoing management of her hypercalcemia, acute kidney injury and elevated troponin. /[id number]/MODL MTDD
--- NOTE | 2017-12-12 16:27 | PDMN ---
Medical Necessity Medical necessity: Pt meets IP criteria per MD; est los >2 mn for eval/tx of hypercalcemia, acute kidney injury, elevated troponin, AFIB & hypertensive urgency; admit for further workup/monitoring, aggressive IVFs, Cardiology consult, med management & therapies; hx primary hyperparathyroidism s/p recent parathyroidectomy, thyroidectomy & pacemaker placement, htn, pulmonary htn; per H&P & order 12/12/17
--- NOTE | 2017-12-12 16:29 | PDCARPN ---
Cardiology Progress Note Chief Complaint: Calcium level elevated. Assessment/Plan: Assessment: 1. Calcium level elevated post recent Thyroidectomy and parathyroidectomy . The Dr office at [facility] called and told her to go to the ER. Calcium 12.7. 2. [employer] [place] A/V Pacemaker placed December 08 2017 for 2:1 A-V Block. Incision site nontender with no bleeding. Well approximated with no sign of infection. She has Pacemaker check tomorrow. Unable to get checked today. 3. Paroxysmal Atrial Fib: Remote Pacer monitor showed brief episode of Atrial Fib. This is a new finding and will start Eliquis 2.5 mg QD ( She is 82 and her Cr is 1.9), and Stop ASA. 4. Troponin 0.489 status post Pacemaker one week ago. Expected elevation due to placement of wires. She has no chest pain. Plan: Start Eliquis for new onset Atrial Fibrillation. Have Pacemaker check in AM by [facility]. Pacemaker site Dressing removed. Incision well approximated with steri-strips in place. 12/12/17 16:06 12/12/17 20:48 Subjective: I do not feel bad today. Understands need for Eliquis but not excited about being on anticoagulation. Reviewed/Discussed With: multidisciplinary team Objective: Vital Signs (8 Hrs) Temp Pulse Resp BP Pulse Ox 12/12/17 15:03 36.6 C 77 18 168/90 H 97 12/12/17 13:02 202/89 H 12/12/17 13:00 36.6 C 82 17 197/79 H 97 12/12/17 12:44 86 18 189/77 H 97 Intake/Output (24 Hrs) 12/11/17 12/12/17 12/13/17 05:59 05:59 05:59 Intake Total 1000 Output Total 350 Balance 650 Intake: IV Infused (ml) 1000 Output: Urine (ml) 350 Toilet 350 Other: Weight 63.8 kg Number of Voids Toilet 1 Result Diagrams: 12/12/17 10:10 12/12/17 16:05 - Physical Exam Constitutional: no apparent distress Cardiovascular: regular rate and rhythm, no murmurs, no rubs, no gallops Peripheral Pulses: 2+: dorsalis-pedis (R), dorsalis-pedis (L) Respiratory: clear to auscultate bilat, no crackles, no wheezes Skin: warm, no edema Neurologic: AAOx3 Psychiatric: cooperative, interactive ICD10 Worksheet Patient Problems: Problems Problem Status Onset Heart block AV second degree Acute Status post thyroid surgery Acute
[2017-12-12] MEDS ORDERED: PROTOCOL POTASSIUM 1 DOSE MISC PRN (17:07)
[2017-12-12] MEDS ORDERED: LABETALOL HCL 5 MG/ML 20 ML MDV IVP PRN (17:11)
[2017-12-12] MEDS ORDERED: POTASSIUM CL 10 MEQ TAB PO ONE (17:30)
[2017-12-12] MEDS ORDERED: diphenhydrAMINE 25 MG CAP PO PRN (18:47)
[2017-12-12] MEDS: ROSUVASTATIN CALCIUM 40 MG TAB PO SCH (20:31)
[2017-12-12] MEDS: FAMOTIDINE 20 MG TAB PO SCH (20:36)
[2017-12-12] MEDS ORDERED: APIXABAN 2.5 MG TAB PO SCH (21:00)
[2017-12-12] MEDS ORDERED: LISINOPRIL 20 MG TAB PO SCH (21:00)
[2017-12-13] MEDS ORDERED: NITROGLYCERIN 0.4 MG BTL SL ONE (01:02)
[2017-12-13] MEDS: NITROGLYCERIN 0.4 MG BTL SL PRN ×2 (01:06→03:30)
[2017-12-13] MEDS: NS 1,000 ML IV SCH (04:10)
[2017-12-13] MEDS ORDERED: LEVOTHYROXINE 100 MCG TAB PO SCH (06:00)
[2017-12-13] MEDS ORDERED: POTASSIUM Cl (KCl) 20 MEQ in 1/2 NS 1,000 ML IV SCH (07:30)
--- NOTE | 2017-12-13 07:34 | PDCARPN ---
Cardiology Progress Note Chief Complaint: nausea/cough Assessment/Plan: Assessment: s/p PPM recent episode of PAF calcium disorder ARF Plan: 12/13/17 07:32 Check a limited echo today to r/o effusion low dose eliquis for PAF PPM interrogation OOB Continue to monitor renal function Subjective: c/o nausea/cough overnight Reviewed/Discussed With: multidisciplinary team Time Spent With Patient: 25 min Objective: Vital Signs (8 Hrs) Temp Pulse Resp BP Pulse Ox 12/13/17 07:17 147/75 H 12/13/17 06:13 82 181/129 H 12/13/17 06:04 181/129 H 12/13/17 03:40 36.5 C 82 16 183/94 H 96 Intake/Output (24 Hrs) 12/12/17 12/13/17 12/14/17 05:59 05:59 05:59 Intake Total 4574 431 Output Total 1650 200 Balance 2924 231 Intake: Oral (ml) 700 100 IV Infused (ml) 3874 331 Ns 1,000 ml @ 200 mls/hr 2874 331 IV CONT DAVID Rx#: [id number] Output: Urine (ml) 1650 200 Toilet 1650 200 Other: Weight 63.8 kg Intake Quantity Yes Sufficient Number of Voids Toilet 1 Number of Stools Toilet 2 Result Diagrams: 12/12/17 10:10 12/13/17 03:21 Cardiac Labs: Cardiac Lab Results (72 Hrs) 12/12/17 12/12/17 22:03 16:05 Troponin I 0.300 H 0.352 H - Physical Exam Constitutional: healthy appearing Eyes: PERRL Ears, Nose, Mouth, Throat: moist mucous membranes Cardiovascular: regular rate and rhythm Peripheral Pulses: 1+: femoral (R), femoral (L) Respiratory: other (slight crackles at base) Gastrointestinal: normoactive bowel sounds Genitourinary: no suprapubic tenderness Skin: no rashes Musculoskeletal: no muscular tenderness Neurologic: AAOx3 Psychiatric: cooperative ICD10 Worksheet Patient Problems: Problems Problem Status Onset Heart block AV second degree Acute Status post thyroid surgery Acute
[2017-12-13] MEDS ORDERED: amLODIPine BESYLATE 5 MG TAB PO SCH (08:00)
--- NOTE | 2017-12-13 08:20 | ECHO ---
[email or web address] [address] [address] Main: [phone] Fax: Transthoracic Echocardiogram Name: RODOLFO STEVENSON MR#: [id number] Study Date: 12/13/2017 Study Time: 07:42 AM Date of : 1935 Age: 82 year(s) Height: 162.6 cm (64 in.) Weight: 63.5 kg (140 lb.) BSA: 1.68 m2 Gender: Female Examination: Limited Echo Indication: R/O pericardial effusion Image Quality: Contrast: Requested by: Collins Marsh BP: 158 mmHg/71 mmHg Heart Rate: Rhythm: Indication: R/O pericardial effusion Procedure Staff Tax Professional: Jinny Blanca [facility] Reading Physician: Collins Marsh MD Requesting Provider: Conclusions: The ejection fraction is visually estimated to be 45 %. LV apical/septal region is hypokinetic.. There is a pacemaker lead noted in the right ventricle. Mild to moderate mitral regurgitation. Mild tricuspid regurgitation is present. No pericardial effusion. Measurements: Chambers Valvular Assessment AV/MV Valvular Assessment TV/PV Normal Normal Normal Name Value Range Name Value Range Name Value Range Visual EF: 45 % TR Vmax: 2.88 mm/s ( - ) TR PGmax: 33 mmHg ( - ) syst. PAP: 38 mmHg ( - ) Continued Measurements: Valvular Assessment TV/PV Name Value CVP (est.): 5 mmHg Findings: Left Ventricle: The ejection fraction is visually estimated to be 45 %. LV apical/septal region is hypokinetic.. Right Ventricle: There is a pacemaker lead noted in the right ventricle. Mitral Valve: Mild to moderate mitral regurgitation. Patient: RODOLFO STEVENSON Study Date: 12/13/2017 Page 1 of 2 07:42 AM Tricuspid Valve: Mild tricuspid regurgitation is present. Pericardium: No pericardial effusion. (No Signature Object) Patient: RODOLFO STEVENSON Study Date: 12/13/2017 Page 2 of 2 07:42 AM [id number]
[2017-12-13] MEDS ORDERED: POTASSIUM CL 10 MEQ TAB PO ONE ×2 (08:39→23:24)
[2017-12-13] MEDS ORDERED: METOPROLOL SUCCINATE XR 50 MG TAB PO SCH (09:00)
[2017-12-13] MEDS ORDERED: METOPROLOL SUCCINATE XR 25 MG TAB PO SCH (09:00)
[2017-12-13] MEDS ORDERED: ASPIRIN 325 MG TAB PO SCH (09:00)
[2017-12-13] MEDS: FAMOTIDINE 20 MG TAB PO SCH (09:42)
[2017-12-13] MEDS: ISOSORBIDE MONONITRATE 30 MG TAB.SR PO SCH (09:42)
[2017-12-13] MEDS: ASPIRIN 81 MG CHEWABLE TAB PO SCH (09:43)
[2017-12-13] MEDS: CHOLECALCIFEROL VIT D3 2,000 UNITS TAB/CAP PO SCH (09:43)
--- NOTE | 2017-12-13 12:17 | GCON ---
[f rep st] CONSULTATION REQUESTED BY: Regla Marino PA-C REASON FOR CONSULTATION: Acute kidney injury. HISTORY OF PRESENT ILLNESS: The patient is an 82-year-old female, who has a history of primary hyper parathyroidism and underwent parathyroidectomy at [facility] with Dr. Abarca on seen on November 30. She had some problem with sutures dehiscing and hematoma postoperatively and required a 2nd black rgery. It sounds like she may have had a partial thyroidectomy, as well. She believes she had only 2 of 4 parathyroid glands removed; although, she was told that perhaps more was removed on her subseq uent surgery. She was placed on calcitriol twice daily and high-dose calcium replacement postoperati vely. Since her surgery, she has had poor energy and appetite. She had some episodes of weakness an d dizziness leading her to seek evaluation in the emergency department here on December 07, where she was found to have a 2:1 AV block and bradycardia in the 40s. She underwent a dual-chamber pacemaker placement. On admission at that time, on December 07, her creatinine was elevated at 1.5. Previously it was 1.0 in July 2017. Her calcium was 10.4 on admission and 9.1 on December 08. On repeat la bs yesterday (December 12), she was found to have a creatinine that was elevated at 1.9 and calcium of 12.7. She was sent by her Endocrinology PA for admission. She received 4.5 L of fluid overnight. Her calcium did come down to 10.0, but she developed some tiffany rtness of breath and chest pain overnight. She still has a little bit of discomfort in her chest, bu t her breathing has improved. She did have an elevated troponin of 0.48 that has come down to 0.30. She did have an echocardiogram this morning that showed new apical wall motion abnormalities and a d rop in ejection fraction from normal to 45%. There was also pabt-ng-goitennp mitral and mild tricusp id regurgitation. We were asked to evaluate and manage her renal insufficiency. She was taking Aleve up to once daily but no more often at home. She has no prior history of kidney disease. She had not noted any changes, either increase or decrease, in urine output home. She has continued to feel a little bit weak and dizzy. She continued on the same doses of her calcitriol and calcium. She reports calcitriol twice daily, and calcium in the chart was reported at 12 g of Tums per day. These have all been held since admission. She was found to be very hypertensive during her pacemaker admission. Her lisinopril was doubled. T hat has been held here and switched to amlodipine. Her blood pressures since admission here have ran ged between 140s and 180s over 70s to 120s. History is taken from the patient, Regla Marino, and review of the medical records, all of which I s ummarize here. PAST MEDICAL HISTORY: See HPI. History of right bundle branch block and left anterior fascicular bl ock, hypertension, hyperlipidemia, pulmonary hypertension, suspected coronary disease based on harris ry calcium score, but negative stress test July 2017, and atrial fibrillation since insertion of her pacemaker. ALLERGIES: Codeine, morphine, and penicillin. SOCIAL HISTORY: She is . She drinks about 1 alcoholic beverage per day. She is not a smoker currently, having quit in 2008. FAMILY HISTORY: Negative for kidney disease or hyperparathyroidism. MEDICATIONS: Prior to admission, lisinopril 20 mg, Crestor, calcitriol, and Tums, doses not reconcil ed. Currently on amlodipine 10 mg, Tylenol, Benadryl, Pepcid, Imdur 30 mg daily, Toprol-XL 50 mg daily. P.r.n. labetalol and Zofran, vitamin D3 4000 units per day, and aspirin 81 mg. REVIEW OF SYSTEMS: See HPI. She has a little bit of right leg tingling on and off related to prior noninvasive back surgery. Otherwise, 10 systems reviewed and negative in detail. VITAL SIGNS: 158/71, heart rate of 70, respirations 18, saturating 96% on 1 L nasal cannula, 36.7 Ce lsius. PHYSICAL EXAMINATION: This is a comfortable, slightly anxious, very pleasant female who ap pears younger than her age, in no acute distress. NEUROLOGIC: Moves all extremities well. No tremo rs. No gross focal deficits. HEENT: Eyes: No scleral icterus. Oral mucosa is moist. NECK: No lymphadenopathy. She has a surg ical bandage at the base of her neck. I do not see jugular venous distention. CHEST: There is a le ft-sided pacemaker with a fresh incision, without erythema or exudate. It is mildly tender. No eryt lyssa. HEART: Regular rate and rhythm with a 1/6 to 2/6 systolic murmur. LUNGS: Bibasilar diminish ed breath sounds. ABDOMEN: Soft, nontender, nondistended. No hepatomegaly. No masses. No rebound or guarding. EXTREMITIES: Lower without any pitting edema. Posterior tib pulses 1+ bilaterally. Hands are warm. SKIN: No rashes, mottling, or ecchymoses. MUSCULOSKELETAL: No gross joint swellin g or deformities. LABORATORY DATA: Sodium is 149, potassium is 3.7, CO2 is 22, BUN 27, creatinine 2.1. EGFR 23. Calc ium total was 10. Albumin yesterday 3.7, phosphorus 4.2, troponin 0.3 (down from 0.48). PTH was les s than 3.4. Ultrasound of kidneys, which I personally reviewed, showed normal-size kidneys without hydronephrosis or increased echogenicity; right 10.4, left 11.5 cm. EKG showed atrial sensed ventricular paced rhythm. IMPRESSION AND PLAN: 1. Acute kidney injury: She had some mild injury on presentation December 07 when she was bradycardi c. This is likely hemodynamic related to poor perfusion. At that time, her calcium was normal. She has had some worsening since that time. It is unclear what her pacemaker function is, but she does have some decrease in her ejection fraction. It is possible she has ongoing perfusion issues from he r heart. Also, she was hypercalcemic. This can cause vasoconstriction and kidney injury. She may h ave progressed to acute tubular necrosis. Her urine sodium was 67, arguing against a purely prerenal state. She was on lisinopril which can aggravate hemodynamic injury due to loss of renal blood flow . This has been held as have her calcium supplements. She did receive an adequate amount of fluid a nd appears volume replete at this time. There was no evidence of obstruction. Her Aleve was not lik jaskaran to play a large role, although could possibly have contributed somewhat. I do anticipate that sh e will have a full recovery. I would not give additional fluids at this time given her dyspnea and d iminished breath sounds and would try to avoid contrast dye at this time if at all possible due to th e risk of additional kidney insult. 2. Hypercalcemia: She was on stable doses of calcium and vitamin D supplementation. She may have h ad some altered hemodynamics that contributed to kidney injury and progressive hypercalcemia. Her ca lcium has normalized off supplements and vitamin D. I will reach out to her endocrinology PA per her request, but would anticipate she would need to start calcitriol and calcium supplementation again, just at a lower dose, very soon, perhaps later today, to avoid bottoming out. 3. New onset systolic heart failure, with apical wall motion abnormality. This is new from her 11/17 3 echo. She did recently have a pacemaker placed. I have spoken to Regla Marino. She will discuss further with Cardiology regarding plausible etiologies. She did have a normal stress test last [facility]. I would wonder whether echocardiographic changes could be related to her pacemaker. Hopefully we can avoid IV contrast dye until her creatinine improves somewhat. 4. Non ST elevation myocardial infarction: Unclear if this is a primary ischemic event or other. H er troponin has come down nicely. Further evaluation today per Cardiology. 5. Hypertension: This seems likely to be reactive, as she previously had well managed blood pressur e. I agree with continuing amlodipine and holding lisinopril. P.r.n. labetalol is a reasonable nicholas ce. Would like to keep her systolics less than 160. Continue Imdur. Hydralazine could possibly be added. We will follow along closely. Thank you for this consultation. /[id number]/MODL
--- NOTE | 2017-12-13 12:22 | ASMTCASEMG ---
Living Arrangements What is your living Answers: With Spouse arrangement? Who do you live with? Type Of Residence What kind of residence do Answers: House you live in? Discharge Plan Comments Coordination Status Comments Notes: CM spoke w/ KHALIF Olvera regarding d/c POC. Pt is a 82 y/o female admitted for elevated trop and hypercalcemia. Therapies have been ordered. PT is recommending home independent. Still awaiting recommendation from OT. CM recieved a call from KHALIF Gomes from [facility]. Mireya has some concerns about frequent hospitalizations. CM met w/ pt for dispo planning. CM brought up Mireya's concerns. Pt is not interested in having HC at this time. Pt reports that two weeks prior she was walking a mile and a half every other day. CM informed pt that she could call her PCP if she felt like she needed more services when she got home. CM available for changes. Plan: Independent Date Signed: 12/13/2017 12:21 PM Electronically Signed By:JUAN Gonsales
--- NOTE | 2017-12-13 13:07 | CPEKG ---
Heart Rate: 69 RR Interval: 870 P-R Interval: 172 QRSD Interval: 136 QT Interval: 424 QTC Interval: 455 P Bruin: 58 QRS Bruin: -90 T Wave Bruin: 97 EKG Severity - ABNORMAL ECG - EKG Impression: ATRIAL-SENSED VENTRICULAR-PACED COMPLEXES EKG Impression: NONSPECIFIC IVCD WITH LAD EKG Impression: LEFT VENTRICULAR HYPERTROPHY Electronically Signed By: José Miguel Adam 14-Dec-2017 14:34:49
--- NOTE | 2017-12-13 13:17 | HOSPPROG ---
Hospitalist Progress Note Assessment/Plan: Hypercalcemia - in setting of RUPA and very high calcium supplements post- parathyroidectomy and thyroidectomy. PTH appropriately suppressed. Calcium has normalized with holding supplements and aggressive IVF's. -cont to hold Ca supplement -stop IVF's due to dyspnea and new reduced EF RUPA - Cr 1.9 -> 2.1 despite aggressive IVF's (was 1.0 in 07/2017). FeNA 1.8%, not suggestive of pre-renal state. UA neg. Renal u/s normal. Consider ATN or possibly related to hypercalcemia. Recent NSAID use also likely contributory. Appreciate renal input. -defer further IVF's -cont to hold MAURICIO, NSAID's -avoid nephrotoxic agents and contrast if possible CAD based on elevated calcium score, presents with elevated troponin (0.465 --> 0.3) - echo shows reduced EF 45% with hypokinetic apex (new from echo last week) . Cardiology following and recommends cath when deemed safe from renal perspective. She had a negative nuclear stress test in 07/2017. -Cont ASA, BB, statin, nitro -needs angiogram when renal function recovered -discussed with Dr. Marsh Atrial fibrillation - seen on pacemaker since placement 12/07. Was started on Eliquis yesterday, which was held by cardiology today in preparation for possible angiogram this hospitalization. -cont ASA -BB for rate control Hypertensive urgency - BP improved with up-titration of Norvasc and Toprol. Holding Lisinopril as above. -prn labetalol Mild to mod MR - cards aware Hypernatremia - changed to 1/2 NS, recheck this afternoon S/P thyroidectomy and parathyroidectomy - T3, T4 nl. -cont LT Full code DVT PPLX - DAVID to start tomorrow Dispo - cont inpt Subjective: Pt had a rough night, developed chest pressure, which improved with nitroglycerin. She endorses orthopnea. No peripheral edema. Currently denies CP or SOB. No fevers/chills. Dizziness and nausea better. Objective: Vital Signs Temp Pulse Resp BP Pulse Ox 36.6 C 75 20 170/84 H 95 12/13/17 12:00 12/13/17 12:00 12/13/17 12:00 12/13/17 12:00 12/13/17 12:00 Laboratory Results 12/13/17 03:21 12/12/17 12/13/17 12/14/17 05:59 05:59 05:59 Intake Total 4574 811 Output Total 1650 700 Balance 2924 111 - Physical Exam Constitutional: no apparent distress Eyes: PERRL Ears, Nose, Mouth, Throat: moist mucous membranes Cardiovascular: regular rate and rhythym, systolic murmur Respiratory: no respiratory distress, inspiratory crackles Gastrointestinal: normoactive bowel sounds, soft, non-tender abdomen Skin: warm Musculoskeletal: full muscle strength Neurologic: AAOx3 Psychiatric: interacting appropriately ICD10 Worksheet Patient Problems: Problems Problem Status Onset Heart block AV second degree Acute Status post thyroid surgery Acute
[2017-12-13] MEDS: ONDANSETRON DISINTEGRATING 4 MG TAB PO PRN (14:59)
[2017-12-13] MEDS: ROSUVASTATIN CALCIUM 40 MG TAB PO SCH (20:44)
--- NOTE | 2017-12-14 07:25 | PDCARPN ---
Cardiology Progress Note Chief Complaint: SOB/nausea Assessment/Plan: Assessment: s/p PPM recent episode of PAF calcium disorder ARF Plan: 12/13/17 07:32 Check a limited echo today to r/o effusion low dose eliquis for PAF PPM interrogation OOB Continue to monitor renal function 12/14/17 07:23 feels much better today No CP Cr still elevated and Hgb reduced Not appropriate for cath at this time as renal function/anemia worse and patient feels better Will order Lexiscan nuclear stress test Hold heparin given anemia Subjective: feels better Reviewed/Discussed With: multidisciplinary team Time Spent With Patient: 25 min Objective: Vital Signs (8 Hrs) Temp Pulse Resp BP Pulse Ox 12/14/17 03:19 36.6 C 80 20 153/69 H 90 L Intake/Output (24 Hrs) 12/13/17 12/14/17 12/15/17 05:59 05:59 05:59 Intake Total 4574 1611 Output Total 1650 1100 Balance 2924 511 Intake: Oral (ml) 700 1180 IV Infused (ml) 3874 431 Ns 1,000 ml @ 200 mls/hr 2874 331 IV CONT DAVID Rx#: [id number] POTASSIUM Cl (KCl) 20 meq 100 In 1/2 Ns 1,000 ml @ 100 mls/hr IV CONT DAVID Rx#: [id number] Output: Urine (ml) 1650 1100 Toilet 1650 1100 Other: Weight 63.8 kg Intake Quantity Yes Yes Sufficient Number of Voids Toilet 1 1 Number of Stools Toilet 2 Result Diagrams: 12/14/17 03:14 12/14/17 03:14 Cardiac Labs: Cardiac Lab Results (72 Hrs) 12/12/17 12/12/17 22:03 16:05 Troponin I 0.300 H 0.352 H - Physical Exam Constitutional: healthy appearing Eyes: PERRL Cardiovascular: regular rate and rhythm Peripheral Pulses: 1+: femoral (R), femoral (L) Respiratory: clear to auscultate bilat Gastrointestinal: normoactive bowel sounds Genitourinary: no suprapubic tenderness Skin: no rashes Musculoskeletal: no muscular tenderness Neurologic: AAOx3 Psychiatric: cooperative ICD10 Worksheet Patient Problems: Problems Problem Status Onset Chest pain Acute Elevated troponin Acute Hypercalcemia Acute Heart block AV second degree Acute Status post thyroid surgery Acute
[2017-12-14] MEDS ORDERED: HEPARIN 5,000 UNIT/0.5 ML INJ SC SCH (08:00)
[2017-12-14] MEDS ORDERED: REGADENOSON 0.4 MG/5 ML SYR IVP ONE (10:35)
--- NOTE | 2017-12-14 10:46 | SOAPPROG ---
SOAP Progress Note Assessment/Plan: Assessment: 1. RUPA. Ur Na was 67. FeNa not low. U/s normal. UA bland. Likely ATN related to poor po intake, hypercalcemia, ACEI, possibly hypoperfusion from AF. Has received adequate volume. Creat up just slightly today. Expect plateau soon. Will not resume IVF at this time. 2. Hypercalcemia. Likely a combination of Ca/calcitriol supplements, volume depletion and RUPA. Correcting nicely, down to 9.7 today. Discussed with her endocrinology PARadha. We will resume low dose calcitriol now to prevent bottoming out d/t recent parathyroidectomy. 3. Hypernatremia. Pt can take po well. Encouraged po H2O intake. Can d/c IVF. 4. CHF. Acute systolic. Apical WMAs with lower EF. Possibly d/t PM. 5. NSTEMI. vs effect from PM. LHC deferred, will have stress test instead today. 6. HTN. BP still high. Off ACEI. On amlodipine, imdur, metoprolol. Can add hydralazine if SBP persists > 160. 7. AF. On metoprolol. 8. Anemia. Hgb down to 8.7 today. Unclear if real or spurious. Will defer to primary service. Plan: 12/14/17 10:44 12/14/17 10:46 12/14/17 10:46 12/14/17 10:51 12/14/17 10:52 12/14/17 10:55 12/14/17 10:56 Subjective: Slept well last night. Feeling much better this am. Objective: Vital Signs Temp Pulse Resp BP Pulse Ox 36.8 C 77 12 156/79 H 92 12/14/17 08:00 12/14/17 08:00 12/14/17 08:00 12/14/17 08:00 12/14/17 08:00 Laboratory Results 12/14/17 03:14 12/14/17 03:14 12/13/17 12/14/17 12/15/17 05:59 05:59 05:59 Intake Total 4574 1611 Output Total 1650 1100 Balance 2924 511 Comfortable wf, sitting in chair, NAD RRR, no m/g/r CTAB Abdomen soft, nontender No LE edema ICD10 Worksheet Patient Problems: Problems Problem Status Onset Status post thyroid surgery Acute Heart block AV second degree Acute Hypercalcemia Acute Chest pain Acute Elevated troponin Acute
[2017-12-14] MEDS: ONDANSETRON 4 MG/2 ML VIAL IVP PRN (11:14)
--- NOTE | 2017-12-14 11:17 | CPR ---
[f rep st] NONINVASIVE CARDIAC PROCEDURE REPORT PROCEDURE: Lexiscan injection of Lexiscan MPI study. SUPERVISING SR. MEDIA MANAGER: Collins Marsh MD INDICATION FOR PROCEDURE: Chest pressure and fatigue. Patient with a permanent pacer with ventricul ar-paced rhythm. PRE: After obtaining informed consent and ensuring patient's n.p.o. status of caffeine for greater t lamb 12 hours, the patient was placed on electrocardiogram. Initial EKG shows A-sense with ventricula r-paced rhythm. The patient denies any chest pain, shortness of breath, or symptoms suggesting ische per. Initial blood pressure was 146/90. Saturation 93%. INJECTION: Patient was given Lexiscan slow IV push, followed by nuclear isotope, within 2 minutes of injection, patient's heart rate carlota up to 98 beats per minute, A-sense V-paced, blood pressure did decrease down to 130/80. Saturation remained stable at 96. Patient did report some mild nausea, mil d midsternal chest pressure, and feeling a flush. Within 4 minutes, patient was given caffeine bever age and within 6 minutes post-test of injection, patient reported all symptoms subsided. Final blood pressure 156/84, saturation 92%, heart rate 91, no significant EKG changes, A-sense V-paced. Vital signs are stable. She is finishing post stress MPI imaging in Nuclear Medicine. IMPRESSION: 82-year-old female being evaluated for possible cardiac ischemia, noted to have mild stevie vated troponin on admission. Patient with mild reported midsternal chest pressure with some nausea a nd flushing sensation post injection, which dissipated with caffeinated beverage. Currently no signi ficant EKG changes. Currently vital signs are stable. She will be finishing post-stress imaging in Nuclear Medicine at this time. /[id number]/MODL
[2017-12-14] MEDS: ASPIRIN 81 MG CHEWABLE TAB PO SCH (12:55)
[2017-12-14] MEDS: CHOLECALCIFEROL VIT D3 2,000 UNITS TAB/CAP PO SCH (12:55)
[2017-12-14] MEDS: ISOSORBIDE MONONITRATE 30 MG TAB.SR PO SCH (12:56)
[2017-12-14] MEDS: FAMOTIDINE 20 MG TAB PO SCH (12:56)
[2017-12-14] MEDS: METOPROLOL SUCCINATE XR 100 MG TAB PO SCH (12:56)
[2017-12-14] MEDS ORDERED: POTASSIUM CL 10 MEQ TAB PO ONE ×3 (13:04→21:45)
--- NOTE | 2017-12-14 15:09 | HOSPPROG ---
Hospitalist Progress Note Assessment/Plan: 82 yo F with hx of HTN, HLD and primary hyperparathyroid now s/p parathyroidectomy/thyroidectomy pw hypercalcemia # Hypercalcemia - in setting of RUPA and very high calcium supplements post- parathyroidectomy and thyroidectomy. PTH appropriately suppressed. Calcium has normalized with holding supplements and aggressive IVF's. # RUPA - Cr 1.9 -> 2.2 despite aggressive IVF's (was 1.0 in 07/2017). FeNA 1.8% . UA neg. Renal u/s normal. Likely 2/2 ATN, NSAID use also likely contributory. Appreciate renal input. -defer further IVF's -cont to hold MAURICIO, NSAID's -avoid nephrotoxic agents and contrast if possible # acute on chronic anemia: drop in h/h since admission without e/o bleeding, likely 2/2 aggressive fluid resuscitation # elevated troponin (0.465 --> 0.3) - echo shows reduced EF 45% with hypokinetic apex (new from echo last week). Cardiology following, with initial plans for cath but given increased creatinine opted instead for stress test. Stress was negative, discussed results with cardiology. No further w/u needed in house. # 2:1 AV block: now s/p PPM placement on prior hospitalization, pacemaker check showing a fib, started on eliquis, bb. Eliquis held, will need to d/w cardiology when to resume # Hypertensive urgency - BP improved with up-titration of Norvasc and Toprol. Holding Lisinopril as above. -prn labetalol # Mild to mod MR - following # Hypernatremia - mild, stable, following S/P thyroidectomy and parathyroidectomy - T3, T4 nl. -cont LT Full code DVT PPLX --[facility] [place] Dispo - cont inpt Patient new to my care. Care plan reviewed with cardiology, nephrology. Further hx obtained from family present at bedside Subjective: patient did not tolerate stress test well--signficant PATRICK, nausea, now feeling better Objective: Vital Signs Temp Pulse Resp BP Pulse Ox 36.6 C 72 16 108/55 L 91 L 12/14/17 15:00 12/14/17 15:00 12/14/17 15:00 12/14/17 15:00 12/14/17 15:00 Laboratory Results 12/14/17 03:14 12/14/17 03:14 12/13/17 12/14/17 12/15/17 05:59 05:59 05:59 Intake Total 4574 1611 Output Total 1650 1100 Balance 2924 511 awake alert nad anicteric op clear rrr no mrg cta b soft nt nd no cce warm dry well perfused oriented appropriate ICD10 Worksheet Patient Problems: Problems Problem Status Onset Status post thyroid surgery Acute Heart block AV second degree Acute Hypercalcemia Acute Chest pain Acute Elevated troponin Acute
[2017-12-14] MEDS: HEPARIN 5,000 UNIT/0.5 ML INJ SC SCH (21:48)
[2017-12-14] MEDS: ROSUVASTATIN CALCIUM 40 MG TAB PO SCH (21:49)
[2017-12-15 04:16] LABS: PLATELET COUNT 231 10^3/uL (150-400)
[2017-12-15] MEDS: HEPARIN 5,000 UNIT/0.5 ML INJ SC SCH ×2 (06:01→15:04)
--- NOTE | 2017-12-15 06:59 | PDCARPN ---
Cardiology Progress Note Chief Complaint: nausea Assessment/Plan: Assessment: s/p PPM recent episode of PAF calcium disorder ARF Plan: 12/13/17 07:32 Check a limited echo today to r/o effusion low dose eliquis for PAF PPM interrogation OOB Continue to monitor renal function 12/14/17 07:23 feels much better today No CP Cr still elevated and Hgb reduced Not appropriate for cath at this time as renal function/anemia worse and patient feels better Will order Lexiscan nuclear stress test Hold heparin given anemia 12/15/17 06:57 doing well stress test normal No CP Given elevated Cr/anemia, as well as improved clinical status and normal stress test, would treat conservatively at this time Will follow as needed, please call with any questions Subjective: feels good Reviewed/Discussed With: multidisciplinary team Time Spent With Patient: 25 min Objective: Vital Signs (8 Hrs) Temp Pulse Resp BP Pulse Ox 12/15/17 03:24 36.8 C 70 20 127/59 H 98 12/14/17 23:31 36.8 C 97 20 128/62 H 96 Intake/Output (24 Hrs) 12/14/17 12/15/17 12/16/17 05:59 05:59 05:59 Intake Total 1611 1200 Output Total 1100 Balance 511 1200 Intake: Oral (ml) 1180 1200 IV Infused (ml) 431 Ns 1,000 ml @ 200 mls/hr 331 IV CONT DAVID Rx#: [id number] POTASSIUM Cl (KCl) 20 meq 100 In 1/2 Ns 1,000 ml @ 100 mls/hr IV CONT DAVID Rx#: [id number] Output: Urine (ml) 1100 Toilet 1100 Other: Weight 64.7 kg Intake Quantity Yes Sufficient Number of Voids Toilet 1 2 Number of Stools Toilet 2 Result Diagrams: 12/15/17 03:00 12/15/17 03:00 Cardiac Labs: Cardiac Lab Results (72 Hrs) 12/12/17 12/12/17 22:03 16:05 Troponin I 0.300 H 0.352 H - Physical Exam Constitutional: healthy appearing Eyes: PERRL Ears, Nose, Mouth, Throat: moist mucous membranes Cardiovascular: regular rate and rhythm Peripheral Pulses: 1+: femoral (R), femoral (L) Respiratory: clear to auscultate bilat Gastrointestinal: normoactive bowel sounds Genitourinary: no suprapubic tenderness Skin: no rashes Musculoskeletal: no muscular tenderness Neurologic: AAOx3 Psychiatric: cooperative ICD10 Worksheet Patient Problems: Problems Problem Status Onset Chest pain Acute Elevated troponin Acute Hypercalcemia Acute Heart block AV second degree Acute Status post thyroid surgery Acute
[2017-12-15] MEDS: ONDANSETRON 4 MG/2 ML VIAL IVP PRN ×2 (07:53→12:48)
[2017-12-15] MEDS: METOPROLOL SUCCINATE XR 100 MG TAB PO SCH (09:53)
[2017-12-15] MEDS: FAMOTIDINE 20 MG TAB PO SCH (09:53)
[2017-12-15] MEDS: ISOSORBIDE MONONITRATE 30 MG TAB.SR PO SCH (09:53)
[2017-12-15] MEDS: ASPIRIN 81 MG CHEWABLE TAB PO SCH (09:53)
[2017-12-15] MEDS: CALCITRIOL 0.25 MCG CAP PO SCH (09:53)
[2017-12-15] MEDS: CHOLECALCIFEROL VIT D3 2,000 UNITS TAB/CAP PO SCH (09:53)
--- NOTE | 2017-12-15 11:05 | SOAPPROG ---
SOAP Progress Note Assessment/Plan: Assessment/Plan: RUPA: likely ATN multifactorial in setting of poor po intake, hypercalcemia, ACEI , and AF. Cr peaked at 2.2 and today is down to 2.0. - No need for HD. - No need for IVFs. - Encouraged good PO fluid intake. - Will continue to monitor. - Pt will need f/u in nephrology clinic after discharge. Hypercalcemia: in setting of calcium and calcitriol, volume depletion and RUPA. Now resolved. Have discussed with her endocrinology PA and restarted calcitriol to prevent bottoming out from her recent parathyroidectomy. Hypernatremia: Na donw to 146, encouraged good PO fluid intake, will continue to monitor. HTN: controlled on current meds, will continue to monitor. Subjective: No acute events overnight. Pt states she had an episode of dizziness and nausea this am but now is feeling better. She also gets a little swelling in her legs but is improved currently. She also notes an itchy area on her back. Objective: Vital Signs Temp Pulse Resp BP Pulse Ox 36.8 C 71 18 136/70 H 92 12/15/17 08:00 12/15/17 08:00 12/15/17 08:00 12/15/17 08:00 12/15/17 08:00 Laboratory Results 12/15/17 03:00 12/15/17 03:00 12/14/17 12/15/17 12/16/17 05:59 05:59 05:59 Intake Total 1611 1200 Output Total 1100 Balance 511 1200 General: alert and oriented, no acute distress Eyes: EOMI, PERRL OP: Clear CV: RRR Resp: nonlabored respirations on RA Abd: Soft, NT/ND Ext: trace edema BLE Neuro; CN II-XII grossly intact, no asterixis Psych; cooperative, appropriate mood and affect ICD10 Worksheet Patient Problems: Problems Problem Status Onset Chest pain Acute Elevated troponin Acute Hypercalcemia Acute Heart block AV second degree Acute Status post thyroid surgery Acute
--- NOTE | 2017-12-15 12:16 | ASMTCMCOM ---
CM Note CM Note Notes: CM spoke w/ Dr. Cassidy regarding d/c POC. The plan remains the same. Pt will d/c independent when medically stable. Therapies have cleared pt to go home without any needs. Awaiting renal to clear pt for d/c. CM available for changes. Plan: Independent Date Signed: 12/15/2017 12:15 PM Electronically Signed By:JUAN Gonsales
[2017-12-15] MEDS: ONDANSETRON DISINTEGRATING 4 MG TAB PO PRN (12:54)
--- NOTE | 2017-12-15 14:44 | HOSPPROG ---
Hospitalist Progress Note Assessment/Plan: 82 yo F with hx of HTN, HLD and primary hyperparathyroid now s/p parathyroidectomy/thyroidectomy pw hypercalcemia # Hypercalcemia - in setting of RUPA and very high calcium supplements post- parathyroidectomy and thyroidectomy. PTH appropriately suppressed. Calcium has normalized and now 9.1. Starting calcitriol today. # RUPA - Cr currently 2.0, has been above 1.5 since early November but prior to that baseline was normal. Suspect this is related to ATN and will continue to have slow improvement, uop is good, lytes are normal. # acute on chronic anemia: drop in h/h since admission without e/o bleeding, likely 2/2 aggressive fluid resuscitation, looks like for the last month her Hct has been in the high 20s. Will need ongoing f/u after discharge through her PCP. # elevated troponin and echo shows reduced EF 45% as well as hypokinetic apex ( new from echo last week). stress test was normal. Plan is for nothing further to be done in house and will f/u with cardiology as an op # 2:1 AV block: now s/p PPM placement on prior hospitalization, pacemaker check showing a fib, started on eliquis, bb. Will resume eliquis now that it is clear that no cath immediately planned # Hypertensive urgency - BP improved with up-titration of Norvasc and Toprol. Holding Lisinopril as above. # Mild to mod MR - following # Hypernatremia - mild, stable, following S/P thyroidectomy and parathyroidectomy - T3, T4 nl. -cont LT Full code DVT PPLX --eliquis Dispo - cont inpt Further hx obtained from family present at bedside Subjective: no significant overnight events, patient is feeling a bit poor today slightly nauseated but no other real complaints Objective: Vital Signs Temp Pulse Resp BP Pulse Ox 36.6 C 66 18 116/73 91 L 12/15/17 12:00 12/15/17 12:00 12/15/17 12:00 12/15/17 12:00 12/15/17 12:00 Laboratory Results 12/15/17 03:00 12/15/17 03:00 12/14/17 12/15/17 12/16/17 05:59 05:59 05:59 Intake Total 1611 1200 Output Total 1100 Balance 511 1200 awake alert nad anicteric op clear rrr no mrg cta b soft nt nd no cce warm dry well perfused oriented appropriate ICD10 Worksheet Patient Problems: Problems Problem Status Onset Chest pain Acute Elevated troponin Acute Hypercalcemia Acute Heart block AV second degree Acute Status post thyroid surgery Acute
[2017-12-15] MEDS: SENNOSIDES 1 TAB PO SCH ×2 (16:03→21:01)
[2017-12-15] MEDS: ROSUVASTATIN CALCIUM 40 MG TAB PO SCH (20:58)
[2017-12-15] MEDS ORDERED: APIXABAN 5 MG TAB PO SCH (21:00)
[2017-12-15] MEDS: APIXABAN 2.5 MG TAB PO SCH (21:01)
[2017-12-16 04:01] LABS: PLATELET COUNT 225 10^3/uL (150-400)
[2017-12-16 09:38] VITALS: BP 163/68
[2017-12-16] MEDS: CALCITRIOL 0.25 MCG CAP PO SCH (09:38)
[2017-12-16] MEDS: METOPROLOL SUCCINATE XR 100 MG TAB PO SCH (09:38)
[2017-12-16] MEDS: ASPIRIN 81 MG CHEWABLE TAB PO SCH (09:38)
[2017-12-16] MEDS: CHOLECALCIFEROL VIT D3 2,000 UNITS TAB/CAP PO SCH (09:38)
[2017-12-16] MEDS: APIXABAN 2.5 MG TAB PO SCH (09:39)
[2017-12-16] MEDS: FAMOTIDINE 20 MG TAB PO SCH (09:39)
[2017-12-16] MEDS: SENNOSIDES 1 TAB PO SCH (09:39)
[2017-12-16] MEDS: ISOSORBIDE MONONITRATE 30 MG TAB.SR PO SCH (09:39)
--- NOTE | 2017-12-16 09:40 | PDDCSUM ---
Discharge Summary Discharge Summary: Dates of service 12/12-12/16/17 Consultations: cardiology, renal Procedures performed: echocardiogram, nuclear stress test Hospital course by problem: # Hypercalcemia - in setting of RUPA and very high calcium supplements post- parathyroidectomy and thyroidectomy. PTH appropriately suppressed. Calcium has normalized and now 9.1. Resumed calcitriol. 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 # RUPA - likely secondary to ATN and still not totally returned to her prior baseline. It looks as though for the last month her creatinine has been elevated to mid 1's, but prior to that was normal. She will f/u with renal post discharge for ongoing management. # acute on chronic anemia: drop in h/h since admission without e/o bleeding, likely 2/2 aggressive fluid resuscitation, looks like for the last month her Hct has been in the high 20s. Will need ongoing f/u after discharge through her PCP. # elevated troponin and echo shows reduced EF 45% as well as hypokinetic apex ( new from echo last week). stress test was normal and non ischemic. Plan is for nothing further to be done in house and will f/u with cardiology as an op # 2:1 AV block: now s/p PPM placement on prior hospitalization, pacemaker check showing a fib, started on eliquis, bb. Will resume eliquis now that it is clear that no cath immediately planned # Hypertensive urgency - BP improved with up-titration of Norvasc and Toprol. Holding Lisinopril as above. # Mild to mod MR - following # Hypernatremia - mild, stable, following S/P thyroidectomy and parathyroidectomy - T3, T4 nl. DC to home with home health f/u with endocrinology as scheduled in the next several days, f/u with cardiology and renal in the coming weeks Items for follow up: --renal function and resolution of ATN --hgb/hct for stability --f/u for pacemaker post operative management --f/u BP which was elevated during this stay --intermediate follow up of mild valvular heart disease --f/u abnormal echocardiogram (EF 45%, new hypokinesis of the apex) with normal stress test following that echo > 35 min spent in discharge, more than half in coordination of care
--- NOTE | 2017-12-16 10:22 | ASDISCHSUM ---
Discharge Information Plan Status:Home with No Needs Medically Cleared to Leave: Discharge Date: CM D/C Disposition:Home, Routine, Self-Care ADT D/C Disposition:Home, Routine, Self-Care Projected Discharge Date: Transportation at D/C: Discharge Delay Reason: Follow-Up Date: Discharge Slot: Final Diagnosis: Placement Information Patient Contact Information Contact Name:TORI Relationship:Daughter Address:[address] Work Phone: City:[place] Alternate Phone: State/Zip Code:[place] [address] Email: Financial Information Financial Class:Medicare Primary Plan Desc:MEDICARE INPATIENT Primary Plan Number:[id number] Secondary Plan Desc:[employer]/M[employer] SUPPLEMENT Secondary Plan Number:[id number] Assessment Information [facility] Initial CM Assessment Living Arrangements What is your living Answers: With Spouse arrangement? Who do you live with? Type Of Residence What kind of residence do Answers: House you live in? Discharge Plan Comments Coordination Status Comments Notes: CM spoke w/ KHALIF Olvera regarding d/c POC. Pt is a 82 y/o female admitted for elevated trop and hypercalcemia. Therapies have been ordered. PT is recommending home independent. Still awaiting recommendation from OT. CM recieved a call from KHALIF Gomes from [facility]. Mireya has some concerns about frequent hospitalizations. CM met w/ pt for dispo planning. CM brought up Mireya's concerns. Pt is not interested in having HC at this time. Pt reports that two weeks prior she was walking a mile and a half every other day. CM informed pt that she could call her PCP if she felt like she needed more services when she got home. CM available for changes. Plan: Independent Date Signed: 12/13/2017 12:21 PM Electronically Signed By:JUAN Gonsales [facility] CM Progress Note CM Note CM Note Notes: CM spoke w/ Dr. Cassidy regarding d/c POC. The plan remains the same. Pt will d/c independent when medically stable. Therapies have cleared pt to go home without any needs. Awaiting renal to clear pt for d/c. CM available for changes. Plan: Independent Date Signed: 12/15/2017 12:15 PM Electronically Signed By:JUAN Gonsales Intervention Information
--- NOTE | 2017-12-16 10:22 | ASMTCMCOM ---
CM Note CM Note Notes: Pt. d/cing today independently. Date Signed: 12/16/2017 10:22 AM Electronically Signed By:Ayesha Baxter LCSW
== END 2017-12-16 11:15 | disposition home or self-care (01) | DRG 640 ==
LOC: F2W 12:47
PROVIDERS: ADMIT Hospitalist; ATTEND Internal Medicine
DX: E83.52 Hypercalcemia (principal); N17.1 Acute kidney failure with acute cortical necrosis; I11.0 Hypertensive heart disease with heart failure; E87.0 Hyperosmolality and hypernatremia; E78.5 Hyperlipidemia, unspecified; I27.20 Pulmonary hypertension, unspecified; I48.0 Paroxysmal atrial fibrillation; R79.89 Other specified abnormal findings of blood chemistry; D64.9 Anemia, unspecified; E89.0 Postprocedural hypothyroidism; E89.2 Postprocedural hypoparathyroidism; I16.0 Hypertensive urgency; Z95.0 Presence of cardiac pacemaker
CPT/HCPCS: 84481-90; 96374; 97161-GP; 97165-GO; A9500; G8978-GP-CH; G8979-GP-CH; G8980-GP-CH; G8987-GO-CI; G8988-GO-CI; G8989-GO-CI; J0360; J1644; J2060; J2405; J2785; J3480

== ENCOUNTER → 2018-03-12 | Outpatient (CLI) | payer OTHER, MEDICARE | LOC: FIMAGING 16:49 | PROVIDERS: ATTEND Family Medicine | DX: R07.0 Pain in throat (principal); M79.89 Other specified soft tissue disorders ==

== ENCOUNTER → 2018-10-09 | Outpatient (CLI) | payer OTHER, MEDICARE | LOC: FIMAGING 09:56 | PROVIDERS: ATTEND Family Medicine | DX: Z12.31 Encounter for screening mammogram for malignant neoplasm of breast (principal); M25.551 Pain in right hip; M54.31 Sciatica, right side; R93.89 Abnormal findings on diagnostic imaging of other specified body structures; M85.9 Disorder of bone density and structure, unspecified; M51.36 Other intervertebral disc degeneration, lumbar region; M51.37 Other intervertebral disc degeneration, lumbosacral region; Z95.0 Presence of cardiac pacemaker ==

== ENCOUNTER → 2018-10-23 | Outpatient (CLI) | payer OTHER, MEDICARE | LOC: FLAB 09:05 | PROVIDERS: ATTEND Family Medicine | DX: M48.07 Spinal stenosis, lumbosacral region (principal); M51.87 Other intervertebral disc disorders, lumbosacral region ==

== ENCOUNTER 2018-11-04 11:13 | Emergency (ER) | payer OTHER, MEDICARE ==
[2018-11-04 11:24] VITALS: BP 114/84
--- NOTE | 2018-11-04 12:11 | EDPHY ---
H & P Stated Complaint: lower back pain with radiation down left leg. Worse at night Time Seen by Provider: 11/04/18 12:10 - Personal History Current Tetanus Diphtheria and Acellular Pertussis (TDAP): Yes - Medical/Surgical History Hx Asthma: No Hx Chronic Respiratory Disease: No Hx Diabetes: Yes Hx Cardiac Disease: Yes Hx Renal Disease: No Hx Cirrhosis: No Hx Alcoholism: No Hx HIV/AIDS: No Hx Splenectomy or Spleen Trauma: No Other PMH: thyroid and parathyroid surgery November 2017. 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 HTN. prediabetic. cholesterol. DM - Social History Smoking Status: Former smoker Constitutional: Initial Vital Signs Temperature (C) 36.5 C 11/04/18 11:21 Heart Rate 99 11/04/18 11:21 Respiratory Rate 16 11/04/18 11:21 Blood Pressure 114/84 H 11/04/18 11:21 O2 Sat (%) 96 11/04/18 11:21 O2 Delivery Mode Room Air Allergies/Adverse Reactions: codeine [Codeine] Allergy (Mild, Verified 11/04/18 11:24) NAUSEA, "CRAZY IN THE HEAD" Penicillins Allergy (Mild, Verified 11/04/18 11:24) INJECTION SITE REACTION morphine Allergy (Unknown, Verified 11/04/18 11:24) made me have a second surgery Home Medications: Medication Instructions Recorded Cholecalciferol Vit D3 [Vitamin D3 4,000 units PO DAILY 12/07/17 2000 units tab (OTC)] Levothyroxine [Synthroid 100 mcg 100 mcg PO DAILY06 12/07/17 (*)] Rosuvastatin Calcium [Crestor 40mg 40 mg PO HS 12/07/17 (*)] Acetaminophen [Tylenol 325mg (*)] 650 mg PO Q4HRS PRN tab 12/16/17 Apixaban [Eliquis] 2.5 mg PO BID #60 tab 12/16/17 Aspirin [Aspirin 81mg (*)] 81 mg PO DAILY tab.chew 12/16/17 Calcitriol [Calcitriol (*)] 0.25 mcg PO DAILY #30 cap 12/16/17 Isosorbide Mononitrate [Imdur 30 30 mg PO DAILY #30 tab.sr 12/16/17 mg (*)] Metoprolol Succinate Xr [Toprol Xl 100 mg PO DAILY #30 tab 12/16/17 100 mg (*)] Sennosides [Senokot] 1 - 2 tab PO BID tab 12/16/17 amLODIPine BESYLATE [Norvasc 10 mg 10 mg PO DAILY #30 tab 12/16/17 (*)] diphenhydrAMINE [Benadryl 25 MG 25 mg PO HS PRN cap 12/16/17 (*)] Medical Decision Making ED Course/Re-evaluation: CHIEF COMPLAINT: Bilateral leg pain, left low back pain HISTORY OF PRESENT ILLNESS: The patient is an anticoagulated (Eliquis an Aspirin) 83 y/o female with a history of a multilevel disk degeneration and a pacemaker complaining of bilateral leg pain and left low back pain. For the last several years she has had low back pain with right-sided radiculopathy for which she had a back surgery for. This pain has slowly been increasing for the last several weeks. On 10/23/18, 2 weeks ago, she had a lumbar MRI which revealed the multilevel disk degeneration. After having the MRI, starting 5 days ago, she noticed that the radiculopathy was now bilateral and worse at night. Her PCP referred her to a pain clinic and prescribed her Tramadol and a muscle relaxant. The pain has not improved with the medications so she decided to present to the emergency department. No fever, headache, chest pain, shortness of breath, abdominal pain , urinary or bowel complaints. REVIEW OF SYSTEMS: A comprehensive 10 system review of systems is otherwise negative aside from elements mentioned in the history of present illness and medical decision making. PHYSICAL EXAM: HR, BP, O2 Sat, RR. Temp noted General Appearance: Alert, well hydrated, appropriate, and non-toxic appearing. Head: Atraumatic without scalp tenderness or obvious injury Eyes: Pupils equal, round, reactive to light and accommodation, EOMI, no trauma , no injection. Ears: Clear bilaterally, no perforation, normal landmarks Nose: Atraumatic, no rhinorrhea, clear. Throat: There is no erythema or exudates, no lesions, normal tonsils, mucus membranes moist. Neck: Supple, 2+ carotid upstroke, nontender, no lymphadenopathy. Respiratory: No retractions, no distress, no wheezes, and no accessory muscle use. Lungs are clear to auscultation bilaterally. Cardiovascular: Regular rate and rhythm, no murmurs, rubs, or gallops. Bilateral carotid, radial, dorsalis pedis, and posterior tibial pulses intact. Good capillary refill all extremities. Gastrointestinal: Abdomen is soft, nontender, non-distended, no masses, no rebound, no guarding, no peritoneal signs. Musculoskeletal: Normal active ROM of all extremities, atraumatic. Neurological: Alert, appropriate, and interactive. The patient has normal DTRs and non-focal cranial nerves, motor, sensory, and cerebellar exam. Skin: No rashes, good turgor, no nodules on palpation. Past medical history: Bradycardic syndrome, hypertension, diabetes Past surgical history: Thyroid and parathyroid surgery November 2017, pacemaker Family history: Denies Social history: Family at bedside, lives in [place], retired DIAGNOSTICS/PROCEDURES/CRITICAL CARE TIME: Not indicated. DIFFERENTIAL DIAGNOSIS: The differential diagnosis for the patient's back pain included but was not limited to musculoskeletal pain, epidural abscess, herniated disk, spinal fracture, and intra-abdominal causes including urinary system. MEDICAL DECISION MAKING: The patient is an anticoagulated (Eliquis an Aspirin) 83 y/o female with a history of a multilevel disk degeneration and a pacemaker presenting with bilateral leg pain and left low back pain. On 10/23/18, 2 weeks ago, she had a lumbar MRI which revealed the multilevel disk degeneration. As she just had imaging performed, she will not need additional studies performed at this time. I have prescribed her Dilaudid and a Medrol dose pack for her symptoms. I have also advised her to follow up with a neurosurgeon, [facility], and her physical therapist. Return precautions provided; patient is comfortable with this plan. Departure - Departure Disposition: Home, Routine, Self-Care Clinical Impression: Back pain Qualifiers: Back pain location: low back pain Chronicity: acute Back pain laterality: bilateral Sciatica presence: with sciatica Sciatica laterality: bilateral sciatica Qualified Code(s): M54.42 - Lumbago with sciatica, left side Condition: Good Instructions: Lumbar Radiculopathy (ED), Chronic Back Pain (DC), Back Pain (ED) Additional Instructions: 1. Followup with a control systems specialist (Dr. oYu or Dr. Huerta) and [facility] within one week. Make sure to schedule an appointment with your PT. 2. Return to the emergency department for severe pain, fever, numbness, difficulty walking, change in location or nature of pain or other concerns. 3. Take the Medrol dose pack as prescribed. 4. Take Dilaudid as prescribed. Referrals: Francheska Araiza MD [Primary Care Provider] - As per Instructions Rich You MD [Medical Doctor] - As per Instructions [facility] [Outside] - As per Instructions Report Scribed for: Sundar Mccracken Report Scribed by: Laila Fuentes Date of Report: 11/04/18 Time of Report: 12:16
== END 2018-11-04 12:38 | disposition home or self-care (01) ==
DX: M51.16 Intervertebral disc disorders with radiculopathy, lumbar region (principal); I10 Essential (primary) hypertension; Z87.891 Personal history of nicotine dependence; Z79.01 Long term (current) use of anticoagulants; Z95.0 Presence of cardiac pacemaker

== ENCOUNTER → 2019-03-15 | Outpatient (CLI) | payer OTHER, MEDICARE | LOC: BMCIMAGING 11:23 ==